=== PATIENT | female | born 1955 | race Caucasian/White ===

== ENCOUNTER 2024-11-08 13:58 | Outpatient (CLI) | payer MEDICARE, BC, SELFPAY ==
--- NOTE | 2024-11-08 14:30 | CRLHL7_ITS ---
For Patients: As a result of the Century Cures Act, medical imaging exams and procedure reports are released immediately into your electronic medical record. You may view this report before your referring provider. If you have questions, please contact your health care provider. Indication: Low back pain Technique: Multiplanar, multisequence, MRI of the lumbar spine, obtained without contrast. Comparison: Lumbar spine x-ray 10/31/2024 Findings: The lumbar lordosis is preserved. No significant spondylolisthesis. Vertebral body heights are grossly maintained. No evidence of acute fracture or focal compression deformity. Bone marrow signal appears within normal limits. The conus medullaris terminates at approximately L2. Incidental right renal cysts. No suspicious findings in the prevertebral and paraspinal soft tissues. Mild degenerative changes of the included SI joints. T12-L1: Mild disc bulge. No neural foraminal or spinal canal stenosis. L1-L2: No neural foraminal or spinal canal stenosis. L2-L3: Mild disc bulge, mild facet arthropathy. No neural foraminal or spinal canal stenosis. L3-L4: Diffuse disc bulge, mild facet arthropathy. Mild bilateral neural foraminal narrowing. Mild spinal canal narrowing. L4-L5: Diffuse disc bulge, facet arthropathy, ligamentum flavum laxity. Mild left, mild-moderate right neural foraminal narrowing. Mild-moderate spinal canal narrowing. L5-S1: Laterally eccentric disc-osteophyte complex, moderate facet arthropathy. No neural foraminal or spinal canal stenosis. Impression: 1. Lumbar spondylosis as detailed. 2. At L3-L4, mild bilateral neural foraminal narrowing, with mild spinal canal narrowing. 3. At L4-L5, mild-moderate right and mild left neural foraminal narrowing, with mild-moderate spinal canal narrowing. Dictated by Jessy Kelly MD @ 11/08/2024 3:21:50 PM (Electronically Signed)
== END 2024-11-08 13:59 | disposition home or self-care (01) ==
LOC: MRI 14:00
PROVIDERS: PCP Internal Medicine; Visit Provider Family Medicine
DX: M54.50 Low back pain, unspecified (principal); M47.896 Other spondylosis, lumbar region; M51.26 Other intervertebral disc displacement, lumbar region; M54.17 Radiculopathy, lumbosacral region
CPT/HCPCS: 72148

== ENCOUNTER 2024-11-26 13:02 | Outpatient (CLI) | payer MEDICARE, BC, SELFPAY | END 2024-11-26 13:03 | disposition home or self-care (01) | LOC: INJ CL 13:03 | PROVIDERS: PCP Internal Medicine; Visit Provider Family Medicine | DX: M54.16 Radiculopathy, lumbar region (principal); M51.26 Other intervertebral disc displacement, lumbar region | CPT/HCPCS: 64483; J1100; Q9966 ==

== ENCOUNTER 2025-03-04 07:07 | Day surgery (SDC) | payer MEDICARE, BC, SELFPAY ==
[2025-03-04] VITALS (22 sets, daily range): BP systolic 111–144; BP diastolic 61–89; PULSE 61–91; RESP 14–20; TEMP 35.9–37.1; O2SAT 92–100; BMI 29.2
[2025-03-04] MEDS: ACETAMINOPHEN 500 MG TABLET 1000 MG PO ×3 (08:00→20:04)
[2025-03-04] MEDS: CELECOXIB 200 MG CAPSULE PO ×2 (08:00→21:07)
[2025-03-04] MEDS: OXYCODONE (CR) 10 MG TAB.ER.12H PO (08:00)
[2025-03-04] MEDS: LACTATED RINGERS 1000 ML 1,000 ML 100 ML IV (08:06)
[2025-03-04] MEDS: SODIUM CHLORIDE 0.9 % (FLUSH) 10 ML SYRINGE IVF (08:06)
--- NOTE | 2025-03-04 08:23 | W.PM.NB ---
Nerve Block Nerve Block Time Seen by Provider: 08:10 Date Seen: 03/04/25 Type of block requested by surgeon for post-operative analgesia: adductor canal Side: right Time out performed: Yes Verification of patient name: Yes Verification of date of : Yes Site marking: site marked Name of person performing procedure: Tello Continuous monitoring Was continuous monitoring of O2 sat, B/P, school lunch monitor, recorded every 15 minutes?: Yes Procedure Checklist: sterile prep, needles and gloves Ultrasound guided. Images saved: Yes Medications given in 5ml increments after negative aspiration: Marcaine %: 0.25 mL: 15 Needle gauge: 20 Precedex (mcg): 25 Patient tolerated procedure well: Yes Block Charges Block Charge (with Pro Fee): Femoral Nerve Use of Ultrasound Machine for Block: Yes- US Guidance/pain block
--- NOTE | 2025-03-04 08:23 | W.PM.NB ---
Nerve Block Nerve Block Time Seen by Provider: 08:10 Date Seen: 03/04/25 Type of block requested by surgeon for post-operative analgesia: geniculars Side: right Time out performed: Yes Verification of patient name: Yes Verification of date of : Yes Site marking: site marked Name of person performing procedure: Tello Continuous monitoring Was continuous monitoring of O2 sat, B/P, cardiac catheterization technician, recorded every 15 minutes?: Yes Procedure Checklist: sterile prep, needles and gloves Ultrasound guided. Images saved: Yes Medications given in 5ml increments after negative aspiration: Marcaine %: 0.25 mL: 9 Needle gauge: 25 Patient tolerated procedure well: Yes Block Charges Block Charge (with Pro Fee): Genicular Nerve Block
--- NOTE | 2025-03-04 08:24 | P.ANES_ITS ---
Anesthesia Charges Start Date/Time Anesthesia Start Date: 03/04/25 Anesthesia Start Time: 08:27 Stop Date/Time Anesthesia Stop Date: 03/04/25 Anesthesia Stop Time: 10:51 Coding CPT Codes CPT Codes: ANESTH KNEE ARTHROPLASTY - 60584 ([id number]) P2 - PATIENT W/MILD SYST DISEASE, QK - SLOT HOST 2-4 CNCRNT ANES PROC, QX - HEAD FIELD HOCKEY COACH SVC W/ MD MED DIRECTION
--- NOTE | 2025-03-04 08:24 | W.ANESCHARGE ---
Anesthesia Charges Start Date/Time Anesthesia Start Date: 03/04/25 Anesthesia Start Time: 08:27 Stop Date/Time Anesthesia Stop Date: 03/04/25 Anesthesia Stop Time: 10:51 Coding CPT Codes CPT Codes: ANESTH KNEE ARTHROPLASTY - 96915 ([id number]) P2 - PATIENT W/MILD SYST DISEASE, QK - WHITESMITH 2-4 CNCRNT ANES PROC, QX - CINDER DUMP CRANE OPERATOR SVC W/ MD MED DIRECTION
[2025-03-04] MEDS: TRANEXAMIC ACID 100 MG/ML INJ 1000 MG IV (08:46)
[2025-03-04] MEDS: LACTATED RINGERS 1000 ML 1,000 ML 125 ML IV (09:00)
--- NOTE | 2025-03-04 10:24 | CRLHL7_ITS ---
For Patients: As a result of the Century Cures Act, medical imaging exams and procedure reports are released immediately into your electronic medical record. You may view this report before your referring provider. If you have questions, please contact your health care provider. Indication: POST OP TKA Technique: Two views right knee Findings/Impression: Hardware from a right total knee arthroplasty is in satisfactory position. Bone alignment is normal. No sign of acute fracture. Postop changes are within normal limits. Dictated by Daniel Stacy MD @ 03/04/2025 11:06:59 AM (Electronically Signed)
--- NOTE | 2025-03-04 10:29 | PM.ORPRC ---
Procedure Note Date of procedure: 03/04/25 Procedure: PREOPERATIVE DIAGNOSIS: Bilateral knee osteoarthritis POSTOPERATIVE DIAGNOSIS: Bilateral knee osteoarthritis NAME OF OPERATION: Right total knee arthroplasty, left knee steroid injection SURGEON: Zan Morel MD GROUP HOME SUPERVISOR: ORALIA Davila ANESTHESIA: Spinal ESTIMATED BLOOD LOSS: 25 mL COMPLICATIONS: None SPECIMENS: None DRAINS: None PREOPERATIVE ANTIBIOTICS: Ancef 2g IMPLANTS: 1. J&J Attune #6 posterior stabilized femur 2. # 7 fixed-bearing tibia 3. #6 posterior stabilized, 8 mm fixed-bearing polyethylene 4. 38 patella INDICATIONS: The patient is a 69-year-old with a longstanding history of severe, unrelenting right knee pain secondary to end-stage (grade IV) right knee osteoarthritis. Despite appropriate nonoperative management, including activity modification, anti-inflammatories, [id number] pain medication, bracing, physical therapy, and injections they continue to have pain and disability. Operative intervention was offered. The risks, benefits and expected outcomes were discussed in detail. These included but were not limited to: Infection, bleeding, injury to blood vessel or nerve, venous thromboembolism. All questions were answered to their satisfaction. Use of an assignment desk assistant was necessary throughout the case for patient positioning and safety, soft tissue retraction, and closure. PROCEDURE: Spinal anesthesia was administered. The patient was placed supine on the operating table. The assignment desk assistant made sure the patient was positioned appropriately. The lower extremity was prepped and draped in the usual sterile fashion. The limb was exsanguinated with the Miguel Ángel bandage. The pneumatic tourniquet was inflated to 225mmHg. A standard anterior incision was made with the knee in flexion. Subcutaneous dissection was sharply taken through fascial layer #1. Full-thickness medial and lateral flaps were elevated. The assignment desk assistant retracted the soft tissues and protected them throughout the case. A standard subvastus approach was made. The patella was subluxed. The infrapatellar fat pad was debrided. The menisci and cruciate ligaments were sharply d?brided. Marginal osteophytes were d?brided with the rongeur. The drill was used to penetrate the femoral canal. The intramedullary femoral guide was placed for a 5-degree valgus cut, removing 10 mm off the distal femur. The saw was used to make the cut. Whitesides line and the trans epicondylar axis were marked. The femoral sizing guide was pinned onto the distal femur. Three degrees of external rotation nicely parallels the transepicondylar axis. Pins were placed for posterior referencing. The four-in-one cutting guide was pinned onto the distal femur. The anterior, posterior, and chamfer cuts were made. The assignment desk assistant protected the collateral ligaments. The box cutting guide was pinned. The box cuts were made. The boxed trial was placed and was an excellent fit. Drill holes for the lugs were made. Attention was then turned to the proximal tibia. The extramedullary tibial guide was placed for a neutral varus/valgus cut with 5 degrees of posterior slope, removing 1 mm based off the medial tibial surface. The assignment desk assistant protected the collateral ligaments and the neurovascular bundle. The saw was used to make the cut. Trial components were placed. The knee was nicely balanced in both flexion and extension. The trial components were removed. The tray was placed in appropriate rotation, parallel to our tibial cutting pins. It was pinned by the assignment desk assistant and the drill and the punch were used. The tray was removed. The punch was used again. We placed a bone plug in the femoral canal. Attention was then turned to the patella. [place] patellar thickness was 22 mm. The lobster claw resection guide was used with the 9.5 mm hiwot. The saw was used to make the cut. Drill holes were made by the assignment desk assistant. The trial was placed and was an excellent fit. Cancellous surfaces were irrigated with pulse lavage and thoroughly dried by the assignment desk assistant. We cemented the tibial component, then the femoral component. We impacted the 8 mm polyethylene onto the tibial tray. The knee was brought into full extension. We then cemented the patellar component. Excessive cement was removed. The cement was allowed to harden. The knee was taken through a range of motion and was found to be nicely balanced in both flexion and extension. The patella tracks centrally. The assignment desk assistant did a three minute dilute Betadine solution soak. The assignment desk assistant irrigated the wound with 3 liters of normal saline via pulse lavage. The assignment desk assistant reapproximated the extensor mechanism with #1 Vicryl in an interrupted [id number] fashion. The assignment desk assistant then ran the extensor mechanism with a #1 PDO Stratafix. The assignment desk assistant closed the subcutaneous tissues with a 3-0 Stratafix and the skin with a running 3-0 Stratafix in a subcuticular fashion. The assignment desk assistant placed a dry dressing. The left knee was sterilely prepped and was injected with 4 mL 0.25% Marcaine without epinephrine, 40 mg Depo-Medrol. Sponge and needle counts were correct x2. The patient tolerated the procedure well. There were no apparent complications. They were carefully transferred to the hospital bed and taken to the postanesthesia care unit in satisfactory condition. PLAN: The patient will be mobilized with physical therapy. Aspirin will be used for DVT prophylaxis. They will be discharged to home once medically appropriate.
[2025-03-04] MEDS: BUPIVACAINE 0.25% 30 ML INJECTION (10:41)
[2025-03-04] MEDS: methylPREDNISolone acetate 80 MG/ML INJ 40 MG INTRA-ARTI (10:41)
--- NOTE | 2025-03-04 10:51 | P.ANES_ITS ---
Anesthesia Charges Start Date/Time Anesthesia Start Date: 03/04/25 Anesthesia Start Time: 08:27 Stop Date/Time Anesthesia Stop Date: 03/04/25 Anesthesia Stop Time: 10:51 Coding CPT Codes CPT Codes: ANESTH KNEE ARTHROPLASTY - 78660 ([id number]) P2 - PATIENT W/MILD SYST DISEASE, QK - TRADING ANALYST 2-4 CNCRNT ANES PROC
--- NOTE | 2025-03-04 10:51 | W.ANESCHARGE ---
Anesthesia Charges Start Date/Time Anesthesia Start Date: 03/04/25 Anesthesia Start Time: 08:27 Stop Date/Time Anesthesia Stop Date: 03/04/25 Anesthesia Stop Time: 10:51 Coding CPT Codes CPT Codes: ANESTH KNEE ARTHROPLASTY - 81405 ([id number]) P2 - PATIENT W/MILD SYST DISEASE, QK - APPRENTICE FUNERAL DIRECTOR 2-4 CNCRNT ANES PROC
[2025-03-04] MEDS: LACTATED RINGERS 1000 ML 1,000 ML 75 ML IV (12:23)
--- NOTE | 2025-03-04 14:04 | PM.IMCN1 ---
Date of Consult Patient: Other Consult date: 03/04/25 Primary Care Provider: Willis Joseph MD Consult Narrative Narrative: Nallely Parks is a 69 year old female admitted to the hospital for right total knee arthroplasty. Dr. Morel performed the procedure without complications. He has requested consultation for management of postoperative medical problems. Patient reports doing well postoperatively except for urinary incontinence. She reports that she has had a couple episodes of urinary incontinence postoperatively. She did not have a sensation to void and likely this was an affect from her spinal anesthesia. She has not previously had any problems with urinary incontinence or bowel or bladder problems. She is also having back pain which is a chronic problem for her. Postoperatively her back was bothering her more than her knee. She undergoes outpatient orthopedic care with Dr. Bolanos. She received a spinal injection on November 26 which she reported helped a lot for about 5 weeks. She has bilateral knee osteoarthritis. She had her right knee replaced today and left knee was injected today by Dr. Morel and she plans to have it replaced in the future. No recent illness or injury. She had a preop physical where there were no significant medical problems identified. She has had previous hysterectomy without problems with anesthesia bleeding or clotting. No family history of problems with bleeding or clotting or anesthesia. [facility] Medical History (Updated 03/04/25 @ 15:34 by Tyler Burciaga MD) Varicose veins of both lower extremities ?I83.93 - Asymptomatic varicose veins of bilateral lower extremities (ICD-10) Sinusitis ?J32.9 - Chronic sinusitis, unspecified (ICD-10) Leukocytosis ?D72.829 - Elevated white blood cell count, unspecified (ICD-10) Keratosis ?L57.0 - Actinic keratosis (ICD-10) Hyperlipidemia ?E78.5 - Hyperlipidemia, unspecified (ICD-10) GERD (gastroesophageal reflux disease) ?K21.9 - Gastro-esophageal reflux disease without esophagitis (ICD-10) Dry eye syndrome ?H04.129 - Dry eye syndrome of unspecified lacrimal gland (ICD-10) Asthma ?J45.909 - Unspecified asthma, uncomplicated (ICD-10) Surgical History (Updated 03/04/25 @ 15:31 by Tyler Burciaga MD) Status post knee replacement ?Z96.659 - Presence of unspecified artificial knee joint (ICD-10) History of right breast biopsy (2000) ?Z98.890 - Other specified postprocedural states (ICD-10) History of esophagogastroduodenoscopy (EGD) (02/27/19) ?Z98.890 - Other specified postprocedural states (ICD-10) History of eye surgery (03/17/10) ?Z98.890 - Other specified postprocedural states (ICD-10) History of total hysterectomy (1991) ?Z90.710 - Acquired absence of both cervix and uterus (ICD-10) Social History (Updated 03/04/25 @ 15:27 by Tyler Burciaga MD) Narrative: She lives with her in [place]. They have a couple steps into the house and she can live on 1 level. She does not smoke. She occasionally drinks alcohol What is your current living situation?: I presently have a place to live Smoking Status: Never smoker How often do you have a drink containing alcohol: monthly or less AUDIT-C Alcohol total score: 1 Non-prescribed substance use: denies use Caffeine: Yes Meds Home Medications and Allergies Home Medications ?Medication ?Instructions ?Recorded ?Confirmed ?Type clobetasol 0.05 % topical ointment topical 2XW 10/31/24 01/16/25 History fluticasone propionate 50 2 spray intranasal DAILY 10/31/24 03/04/25 History mcg/actuation nasal spray,suspension fluticasone 250 mcg-salmeterol 50 1 ea inhalation BID 11/27/24 03/04/25 History mcg/dose blistr powdr for inhalation (Wixela Inhub) acetaminophen 650 mg 1,300 mg PO Q8H PRN 02/25/25 03/04/25 History tablet,extended release (Pain Relief (acetaminophen)) losartan 25 mg tablet 25 mg PO QDAY 02/25/25 03/04/25 History rosuvastatin 5 mg tablet 5 mg PO QDAY 02/25/25 03/04/25 History aspirin 81 mg chewable tablet 81 mg PO BID for DVT prophylaxis 03/04/25 Rx (Aspirin Childrens) 30 days #60 tabs oxycodone 5 mg tablet 2.5 - 5 mg (0.5 - 1 x 5 mg) PO 03/04/25 Rx Q4-6H PRN Pain #42 tabs sennosides 8.6 mg tablet (Senna 17.2 mg (2 x 8.6 mg) PO BID PRN 03/04/25 Rx Lax) constipation #100 tabs Allergies Allergy/AdvReac Type Severity Reaction Status Date / Time Penicillins Allergy Unknown Rash Verified 03/04/25 07:35 Exam Narrative: Exam Narrative: She is alert and appears in no distress. Oropharynx normal. Respirations are clear to auscultation. Cardiovascular: S1, S2, regular rate and rhythm. Abdomen: Bowel sounds active. Abdomen is soft without tenderness or mass. Lower extremities examined. No edema she has intact sensation and pulses and motion in her feet and ankles. Const: Vital Signs, click to edit/add: Vital Signs - 24 hr 03/04/25 08:10 03/04/25 10:47 03/04/25 10:55 Temperature 98.1 F 97.2 F L Pulse Rate 67 73 67 Pulse Rate [Left P ulse Oximeter] Respiratory Rate 16 14 16 Blood Pressure 136/77 115/73 121/76 Blood Pressure [Ri ght Arm] Pulse Oximetry 100 97 97 Oxygen Delivery Me thod Nasal Cannula Room Air Room Air Oxygen Flow Rate 3 03/04/25 11:00 03/04/25 11:05 03/04/25 11:10 Temperature Pulse Rate 64 64 61 Pulse Rate [Left P ulse Oximeter] Respiratory Rate 16 14 16 Blood Pressure 122/81 123/80 124/71 Blood Pressure [Ri ght Arm] Pulse Oximetry 98 99 97 Oxygen Delivery Me thod Room Air Room Air Room Air Oxygen Flow Rate 03/04/25 11:15 03/04/25 11:20 03/04/25 11:41 Temperature 97.2 F L 96.6 F L Pulse Rate 64 62 Pulse Rate [Left P ulse Oximeter] 61 Respiratory Rate 16 16 14 Blood Pressure 137/81 131/75 Blood Pressure [Ri ght Arm] 132/75 Pulse Oximetry 98 98 95 Oxygen Delivery Me thod Room Air Room Air Room Air Oxygen Flow Rate 03/04/25 11:41 03/04/25 11:49 03/04/25 12:01 Temperature Pulse Rate Pulse Rate [Left P ulse Oximeter] 66 71 Respiratory Rate 16 18 16 Blood Pressure Blood Pressure [Ri ght Arm] 130/87 117/70 Pulse Oximetry 95 96 95 Oxygen Delivery Me thod Room Air Room Air Room Air Oxygen Flow Rate 3 03/04/25 12:15 03/04/25 12:45 03/04/25 13:00 Temperature Pulse Rate Pulse Rate [Left P ulse Oximeter] 76 Respiratory Rate 16 Blood Pressure Blood Pressure [Ri ght Arm] 144/80 H 116/61 127/67 Pulse Oximetry 95 Oxygen Delivery Me thod Room Air Oxygen Flow Rate 3 Documenting provider has reviewed patient's vital signs: yes Assessment and Plan Assessment and plan (1) Status post knee replacement: Problem comment: Right total knee arthroplasty 03/04/2025 Dr. Morel. no complications. Status: Acute (2) Urinary incontinence: Problem comment: Likely from spinal anesthesia. Likely to improve. Status: Acute (3) Osteoarthritis of left knee: Problem comment: Status post knee injection 03/04/2025 Status: Acute (4) Lumbar radiculopathy: Problem comment: Chronic, epidural steroid injection on 11/26/2024 Status: Acute Plan Admit for postoperative care, therapy, pain management, observation of side effects of spinal anesthesia. Total Time Spent Total Time Spent: Total time spent today is 40 minutes in coordination of care, reviewing outside records, discussion with patient and about recovery from surgery and monitoring for complications.
[2025-03-04] MEDS: CEFAZOLIN 2 GM in 0.9 % SODIUM CHLORIDE Mini-bag 100 ML IVPB ×2 (15:18→23:23)
--- NOTE | 2025-03-04 16:24 | PC.NURSE ---
Pt got back from pacu with pain 2-4 /10 she is getting food and po pain meds. she is alert x4. she is very pleasant, she was up with a assist walker and GB. she is a fall risk. and alarms are on. IV is patent. she is voiding. she is up to the chair and she has a sore back
[2025-03-04] MEDS: ROSUVASTATIN CALCIUM 10 MG TABLET 5 MG PO (17:41)
--- NOTE | 2025-03-04 19:35 | PC.NURSE ---
End of shift Note (262) Patient was very pleasant and cooperative throughout shift. VSS. Afebrile. Moves SBA. Saline locked. Reports pain is tolerable.
[2025-03-04] MEDS: ASPIRIN 81 MG TABLET EC PO (21:07)
[2025-03-04] MEDS: [UNRECOGNIZED DRUG - OTHER] IH (21:07)
[2025-03-04] MEDS: FLUTICASONE PROPION SALMETEROL IH (21:07)
[2025-03-04] MEDS: SENNOSIDES 1 TAB TABLET 2 TAB PO (21:08)
[2025-03-05] MEDS: ACETAMINOPHEN 500 MG TABLET 1000 MG PO ×2 (01:52→08:46)
[2025-03-05 03:00] VITALS: BP 129/76; PULSE 80; RESP 18; TEMP 36.4; O2SAT 95
--- NOTE | 2025-03-05 05:38 | PC.NURSE ---
End of shift report [id number]: VSS. Afebrile. Right knee dressing is C/D/I, CMS is intact. Pt denies nausea. Pt ambulated the [place] twice overnight with clinical writer. Pt ambulates SBA with walker and gait belt. Intermittent ice applied. Pt is up in the chair, call light within reach. ?
--- NOTE | 2025-03-05 08:05 | PM.IMPN1 ---
Assessment and Plan Assessment and plan (1) Status post knee replacement: Problem comment: Right total knee arthroplasty 03/04/2025 Dr. Morel. no complications. Doing well, discharge today Status: Acute (2) Urinary incontinence: Problem comment: Likely from spinal anesthesia. Resolved Status: Acute (3) Osteoarthritis of left knee: Problem comment: Status post knee injection 03/04/2025 Status: Acute (4) Lumbar radiculopathy: Problem comment: Chronic, epidural steroid injection on 11/26/2024 Status: Acute (5) Insomnia: Problem comment: Patient slept poorly in the hospital. She thinks she will sleep better at home but with her back pain and other chronic insomnia we discussed behavioral interventions and medications to address this issue. Particular focus on addressing back pain. I did prescribe hydroxyzine which can be used on an as needed basis. Status: Acute Plan Discharge to home today for outpatient therapy and outpatient follow-up of back pain and insomnia. Total Time Spent Total Time Spent: Total time spent today is 35 minutes in coordination of care and discussing management of chronic back pain, insomnia an postop rehab for knee surgery. Subjective Date Seen: 03/05/25 Interval history: 69-year-old female status post right knee arthroplasty day 1. The pain is manageable. Continues to have significant back pain and finding sleeping in the chair last night was uncomfortable but better than sleeping in the bed. She has regained bladder control. Exam Narrative: Exam Narrative: Right Knee has moderate bruising around it. She has intact motion and sensation distally. Const: Vital Signs, click to edit/add: Vital Signs - 24 hr 03/04/25 08:10 03/04/25 10:47 03/04/25 10:55 Temperature 98.1 F 97.2 F L Pulse Rate 67 73 67 Pulse Rate [Left P ulse Oximeter] Respiratory Rate 16 14 16 Blood Pressure 136/77 115/73 121/76 Blood Pressure [Le ft Arm] Blood Pressure [Ri ght Arm] Pulse Oximetry 100 97 97 Oxygen Delivery Me thod Nasal Cannula Room Air Room Air Oxygen Flow Rate 3 03/04/25 11:00 03/04/25 11:05 03/04/25 11:10 Temperature Pulse Rate 64 64 61 Pulse Rate [Left P ulse Oximeter] Respiratory Rate 16 14 16 Blood Pressure 122/81 123/80 124/71 Blood Pressure [Le ft Arm] Blood Pressure [Ri ght Arm] Pulse Oximetry 98 99 97 Oxygen Delivery Me thod Room Air Room Air Room Air Oxygen Flow Rate 03/04/25 11:15 03/04/25 11:20 03/04/25 11:41 Temperature 97.2 F L 96.6 F L Pulse Rate 64 62 Pulse Rate [Left P ulse Oximeter] 61 Respiratory Rate 16 16 14 Blood Pressure 137/81 131/75 Blood Pressure [Le ft Arm] Blood Pressure [Ri ght Arm] 132/75 Pulse Oximetry 98 98 95 Oxygen Delivery Me thod Room Air Room Air Room Air Oxygen Flow Rate 03/04/25 11:41 03/04/25 11:49 03/04/25 12:01 Temperature Pulse Rate Pulse Rate [Left P ulse Oximeter] 66 71 Respiratory Rate 16 18 16 Blood Pressure Blood Pressure [Le ft Arm] Blood Pressure [Ri ght Arm] 130/87 117/70 Pulse Oximetry 95 96 95 Oxygen Delivery Me thod Room Air Room Air Room Air Oxygen Flow Rate 3 03/04/25 12:15 03/04/25 12:45 03/04/25 13:00 Temperature Pulse Rate Pulse Rate [Left P ulse Oximeter] 76 Respiratory Rate 16 Blood Pressure Blood Pressure [Le ft Arm] Blood Pressure [Ri ght Arm] 144/80 H 116/61 127/67 Pulse Oximetry 95 Oxygen Delivery Me thod Room Air Oxygen Flow Rate 3 03/04/25 14:15 03/04/25 15:00 03/04/25 15:00 Temperature Pulse Rate Pulse Rate [Left P ulse Oximeter] 71 88 Respiratory Rate Blood Pressure Blood Pressure [Le ft Arm] Blood Pressure [Ri ght Arm] 119/72 Pulse Oximetry 97 Oxygen Delivery Me thod Room Air Oxygen Flow Rate 03/04/25 15:15 03/04/25 16:15 03/04/25 17:15 Temperature 98 F Pulse Rate Pulse Rate [Left P ulse Oximeter] 70 88 91 Respiratory Rate 20 Blood Pressure Blood Pressure [Le ft Arm] 114/64 Blood Pressure [Ri ght Arm] 111/89 125/74 Pulse Oximetry 97 97 Oxygen Delivery Me thod Room Air Room Air Oxygen Flow Rate 03/04/25 19:00 03/04/25 23:00 03/04/25 23:00 Temperature 98.7 F Pulse Rate Pulse Rate [Left P ulse Oximeter] 78 84 Respiratory Rate 18 16 16 Blood Pressure Blood Pressure [Le ft Arm] Blood Pressure [Ri ght Arm] 114/69 Pulse Oximetry 92 98 Oxygen Delivery Me thod Room Air Room Air Oxygen Flow Rate 03/04/25 23:30 03/05/25 03:00 Temperature 97.4 F L 97.5 F L Pulse Rate Pulse Rate [Left P ulse Oximeter] 84 80 Respiratory Rate 16 18 Blood Pressure Blood Pressure [Le ft Arm] 129/76 Blood Pressure [Ri ght Arm] 123/83 Pulse Oximetry 98 95 Oxygen Delivery Me thod Room Air Room Air Oxygen Flow Rate Documenting provider has reviewed patient's vital signs: yes
[2025-03-05 08:08] VITALS: BP 128/75; PULSE 73; RESP 18; TEMP 36.5; O2SAT 96
--- NOTE | 2025-03-05 08:09 | PM.ORPN ---
Subjective Subjective Time Seen by Provider: 07:40 Date Seen: 03/05/25 Principal diagnosis: Status post right knee replacement Interval history: Nallely states she did not get much sleep last night. She is comfortable. She has ambulated the hallways. This went well. She will discharge to home today. Ortho Exam Narrative Exam Narrative: Alert and oriented x3. Patient is in no acute distress. Converses without labored breathing. Hearing is grossly intact. Ambulates with a walker. Examination of the right knee shows ecchymosis present. Anterior hematoma. Calves are soft and nontender. CMS intact right lower extremity. Const Vital Signs, click to edit/add: Vital Signs - 24 hr 03/04/25 08:10 03/04/25 10:47 03/04/25 10:55 Temperature 98.1 F 97.2 F L Pulse Rate 67 73 67 Pulse Rate [Left Pulse Oximeter] Respiratory Rate 16 14 16 Blood Pressure 136/77 115/73 121/76 Blood Pressure [Left Arm] Blood Pressure [Right Arm] Pulse Oximetry 100 97 97 Oxygen Delivery Method Nasal Cannula Room Air Room Air Oxygen Flow Rate 3 03/04/25 11:00 03/04/25 11:05 03/04/25 11:10 Temperature Pulse Rate 64 64 61 Pulse Rate [Left Pulse Oximeter] Respiratory Rate 16 14 16 Blood Pressure 122/81 123/80 124/71 Blood Pressure [Left Arm] Blood Pressure [Right Arm] Pulse Oximetry 98 99 97 Oxygen Delivery Method Room Air Room Air Room Air Oxygen Flow Rate 03/04/25 11:15 03/04/25 11:20 03/04/25 11:41 Temperature 97.2 F L 96.6 F L Pulse Rate 64 62 Pulse Rate [Left Pulse Oximeter] 61 Respiratory Rate 16 16 14 Blood Pressure 137/81 131/75 Blood Pressure [Left Arm] Blood Pressure [Right Arm] 132/75 Pulse Oximetry 98 98 95 Oxygen Delivery Method Room Air Room Air Room Air Oxygen Flow Rate 03/04/25 11:41 03/04/25 11:49 03/04/25 12:01 Temperature Pulse Rate Pulse Rate [Left Pulse Oximeter] 66 71 Respiratory Rate 16 18 16 Blood Pressure Blood Pressure [Left Arm] Blood Pressure [Right Arm] 130/87 117/70 Pulse Oximetry 95 96 95 Oxygen Delivery Method Room Air Room Air Room Air Oxygen Flow Rate 3 03/04/25 12:15 03/04/25 12:45 03/04/25 13:00 Temperature Pulse Rate Pulse Rate [Left Pulse Oximeter] 76 Respiratory Rate 16 Blood Pressure Blood Pressure [Left Arm] Blood Pressure [Right Arm] 144/80 H 116/61 127/67 Pulse Oximetry 95 Oxygen Delivery Method Room Air Oxygen Flow Rate 3 03/04/25 14:15 03/04/25 15:00 03/04/25 15:00 Temperature Pulse Rate Pulse Rate [Left Pulse Oximeter] 71 88 Respiratory Rate Blood Pressure Blood Pressure [Left Arm] Blood Pressure [Right Arm] 119/72 Pulse Oximetry 97 Oxygen Delivery Method Room Air Oxygen Flow Rate 03/04/25 15:15 03/04/25 16:15 03/04/25 17:15 Temperature 98 F Pulse Rate Pulse Rate [Left Pulse Oximeter] 70 88 91 Respiratory Rate 20 Blood Pressure Blood Pressure [Left Arm] 114/64 Blood Pressure [Right Arm] 111/89 125/74 Pulse Oximetry 97 97 Oxygen Delivery Method Room Air Room Air Oxygen Flow Rate 03/04/25 19:00 03/04/25 23:00 03/04/25 23:00 Temperature 98.7 F Pulse Rate Pulse Rate [Left Pulse Oximeter] 78 84 Respiratory Rate 18 16 16 Blood Pressure Blood Pressure [Left Arm] Blood Pressure [Right Arm] 114/69 Pulse Oximetry 92 98 Oxygen Delivery Method Room Air Room Air Oxygen Flow Rate 03/04/25 23:30 03/05/25 03:00 Temperature 97.4 F L 97.5 F L Pulse Rate Pulse Rate [Left Pulse Oximeter] 84 80 Respiratory Rate 16 18 Blood Pressure Blood Pressure [Left Arm] 129/76 Blood Pressure [Right Arm] 123/83 Pulse Oximetry 98 95 Oxygen Delivery Method Room Air Room Air Oxygen Flow Rate Assessment and Plan Assessment and plan (1) Status post knee replacement: Problem details: Right total knee arthroplasty 03/04/2025 Dr. Morel. no complications. Doing well, discharge today Status: Acute Assessment and Plan: Plan for discharge is today to home if they meet discharge criteria. DVT prophylaxis includes aspirin 81 mg twice daily x1 month, Compression stockings as needed for swelling. Frequent ambulation, every hour throughout the day. Remove dressing in 1 week. Observe wound and phone Orthopedics with any questions or concerns Return to clinic in 1-2 weeks for a wound check as scheduled Return to clinic in 6 weeks with surgeon Minimize narcotic use. Wean off and discontinue soon as possible. Activities as tolerated. No strenuous activity. Outpatient physical therapy as scheduled. Ice and elevate the operative extremity. No restriction on ice.
[2025-03-05 08:25] VITALS: O2SAT 95
[2025-03-05] MEDS: CELECOXIB 200 MG CAPSULE PO (08:45)
[2025-03-05] MEDS: ASPIRIN 81 MG TABLET EC PO (08:45)
[2025-03-05] MEDS: LOSARTAN POTASSIUM 50 MG TABLET 25 MG PO (08:46)
[2025-03-05] MEDS: [UNRECOGNIZED DRUG - OTHER] IH (09:04)
[2025-03-05] MEDS: FLUTICASONE PROPION SALMETEROL IH (09:04)
--- NOTE | 2025-03-05 10:19 | SUR.PREOP ---
TIME?OUT:?0815 on 03/04/2025 PT/RN/MDA?VERIFICATION?OF?SURGICAL?SITE,?PROCEDURE,?AND?CONSENT OBTAINED?PRIOR?TO?INVASIVE?PROCEDURE.
--- NOTE | 2025-03-05 10:40 | PC.SOCIAL ---
Discharge planning: SW met with patient and patient's who state that they don't have any needs/support requests for home. Patient mentions that she has made meals ahead of time and has prepped as much as she can. SW to assist if needs arise.
--- NOTE | 2025-03-05 11:05 | PC.NURSE ---
Pt discharged home at 1045. pt is alert and oriented. VSS. Right knee dressing c/d/i. minimal swelling noted, bilateral pedal pulse normal . Pain well managed. Ice packs given. Discharge instructions given to the pt, no further questions asked. Pt escorted out in wheelchair with spouse.
== END 2025-03-05 10:45 | disposition home or self-care (01) ==
LOC: OR 07:11 → MEDSURG 07:12
PROVIDERS: PCP Family Medicine; Visit Provider Orthopaedic Surgery
PROC: (CPT 27447; principal; 2025-03-04 08:30)
PROC: (CPT 27447; 2025-03-04 08:30)
DX: M17.0 Bilateral primary osteoarthritis of knee (principal); G89.18 Other acute postprocedural pain; R32 Unspecified urinary incontinence; K21.9 Gastro-esophageal reflux disease without esophagitis; J45.909 Unspecified asthma, uncomplicated; Z79.82 Long term (current) use of aspirin; M54.16 Radiculopathy, lumbar region; F51.04 Psychophysiologic insomnia
CPT/HCPCS: 27447; 20610; 01402; 64447; 64454; 73560; 76942; 97110; 97116; 97161; 97165; 97530; 97535; A9270; C1776; J0665; J0690; J1010; J1100; J2405; J2704; J7120

== ENCOUNTER 2025-03-06 19:08 | Emergency (ER) | payer MEDICARE, BC, SELFPAY ==
--- OUTSIDE RECORDS SUMMARY | 2025-02-19 13:00 | XMS_ITS | Encounter Summary ---
Author Organization [facility] Address [address] [place] [address] Care Team Providers Care Fish Culturist Name Role Phone Willis Joseph M.D. [facility] Reason for Visit * Reason Comments Pre-op Exam Surgery 03/04/25 [place], right knee, Dr Morel Encounter Details Date Type Department Care Team (Late st Contact Info) Description 02/19/2025 1:00 PM CDT Office Visit Department of Family Medicine, [facility], in [place], [place] [address] [place] [address] Willis Joseph M.B.B.S., MEliza [address] [place] [address] Preoperative Exam (Primary Dx); History Of Falling; Anxiety Social History Tobacco Use Types Packs/Day Years Used Date Smoking Tobacco: Never Passive Smoke Exposure: Never Smokeless Tobacco: Never Alcohol Use Standard Drinks/Week Comments Yes 7 (1 standard drink = 0.6 oz pur e alcohol) [facility] Utilities Answer Date Recorded In the past 12 months has e electric, gas, oil, or water [employer] threatened to shut off services in your home? No 12/20/2024 Humiliation, Afraid, Rape, and Kick questionnair e Answer Date Recorded Within the last year, have y ou been afraid of your partner or ex-partner? No 07/08/2022 Within the last year, have y ou been humiliated or emotionally abused in other ways by your partner or ex-partner? No Within the last year, have y ou been kicked, hit, slapped, or otherwise physically hurt by your partner or ex-partner? No 07/08/2022 Within the last year, have y ou been raped or forced to have any kind of sexual activity by your partner or ex-partner? No 07/08/2022 Hunger Vital Sign Answer Date Recorded Within the past 12 months, y ou worried that your food would run out before you got the money to buy more. Never true 12/21/19 25 Within the past 12 months, t he food you bought just didn't last and you didn't have money to get more. Never true 12/20/2024 PRAPARE - Transportation Answer Date Re corded In the past 12 months, has l ack of transportation kept you from medical appointments or from getting medications? No 11/25 In the past 12 months, has l ack of transportation kept you from meetings, work, or from getting things needed for daily living? No 12/20/2024 Depression Answer Date Recor ded PHQ-9 Total Score (max 27) 0 07/07 Housing Stability Answer Date Recorded What is your living situation today? I have a [facility] place to live 12/20/2024 Education Answer Date Recorded What is the highest level of school you have completed or the highest degree you have received? 12th grade 01/31/2019 Comments No Sex and Gender Information Value Date Recorded Sex Assigned at Female 02/21/2019 9:59 PM CDT Legal Sex Female 6:42 AM TEA TASTER Gender Identity Female 02/21/2019 9:59 PM CDT Sexual Orientation Straight 02/21/2019 9: 59 PM CDT documented as of this encounter Last Filed Vital Signs Vital Sign Reading Time Taken Comments Blood Pressure 119/76 02/19/2025 1:04 PM CDT average Pulse 73 02/19/2025 1:04 PM CDT Temperature 35.8 C (96.4 F) 02/19/2025 1:04 PM CDT Respiratory Rate 16 02/19/2025 1:04 PM CDT Oxygen Saturation - - Inhaled Oxygen Concentration - - Weight 80.6 kg (177 lb 11.1 oz) 02/19/2025 1:04 PM CDT Height 166.4 cm (5' 5.51) 02/19/2025 1 :04 PM CDT with shoes on Body Mass Index 29.11 02/19/2025 1:04 PM CDT documented in this encounter Progress Notes * Willis Joseph M.B.B.S., M.D. - 02/19/2025 1:00 PM CDT DATE OF VISIT: 02/19/2025 SUBJECTIVE CHIEF COMPLAINT / REASON FOR VISIT Nallely Parks is a 69 y.o. female who presents for evaluation of Pre-op Exam (Surgery 03/04/25 [place], right knee, Dr Morel). The patient verbally consented to an audio recording of their visit to assist with the completion of documentation. History of Present Illness Mrs. Nallely Parks is a 69 year old female who presents for preoperative evaluation for a right total knee replacement. She is scheduled for a right total knee replacement at [facility] on March 04, to be performed by Dr. Zan Morel. She has been experiencing knee issues since a fall in September of the previous year, which she believes precipitated her current condition. During the fall, she tripped and hit her good knee on a curb, but landed on grass, avoiding major injury. She has been attending physical therapy at [facility] and finds it beneficial for her back and legs. She also participates in water aerobics twice a week, which she enjoys and finds less risky for falls. She has a history of back issues for which she received an injection on the third of the month, which helped significantly. She continues to work on her back through physical therapy. Her current medications include Atarax for anxiety, which she takes a couple of times a week at bedtime to aid with sleep. She also takes Crestor (rosuvastatin) at night, losartan, a generic Advair Discus, a nasal spray, Pataday eye drops, and occasionally uses Albuterol. She has been using magnesium citrate gummies for sleep aid as well. She has stopped taking omega-3 supplements and other vitamins in preparation for surgery. No recent falls, headaches, dizziness, chest pain, shortness of breath, or black stools. She notes her stools are sometimes dark, which she attributes to her diet, specifically Raisin Bran. OBJECTIVE VITAL SIGNS BP 119/76 (BP Location: Left arm, Patient Position: Sitting, Cuff Size: Regular) Comment: average Comment (Cuff Size): long Pulse 73 Temp (!) 35.8 ??C (Temporal) Resp 16 Ht 166.4 cm Comment: with shoes on Wt 80.6 kg BMI 29.11 kg/m?? Physical Exam Vitals reviewed. Constitutional General: She is not in acute distress. Appearance: Normal appearance. She is not ill-appearing. HENT Head: Normocephalic and atraumatic. Cardiovascular Rate and Rhythm: Normal rate and regular rhythm. Pulmonary Effort: Pulmonary effort is normal. No respiratory distress. Breath sounds: Normal breath sounds. Musculoskeletal Cervical back: Normal range of motion. No rigidity. Lymphadenopathy Cervical: No cervical adenopathy. Neurological General: No focal deficit present. Mental Status: She is alert and oriented to person, place, and time. Physical Exam ASSESSMENT/ PLAN Preoperative Exam Scheduled for right total knee replacement at [facility] on March 04, 2025, with Dr. Zan Morris. A fall a year ago may have precipitated knee issues. Currently undergoing physical therapy and water aerobics, which are beneficial. No recent falls. Previous hysterectomy at age 37 with no anesthesia issues, opted to stay overnight post-surgery. No history of blood transfusions. Medications include Atarax for anxiety, taken occasionally for sleep, and magnesium gummies. Advised to hold certain medications and supplements on the day of surgery. Discussed postoperative blood thinner use, expected to be aspirin, as classic blood thinners are not typically used for prevention in this context. - Hold losartan, magnesium, multivitamins, fish oil, and supplements on the morning of surgery. - Continue Advair and albuterol as needed. - Allow Tylenol 500 mg if in pain on the morning of surgery. - Hold Nexium on the morning of surgery. - Continue rosuvastatin the night before surgery. - Discuss with Dr. Morel regarding postoperative blood thinner use, expected to be aspirin. History Of Falling Attending physical therapy at [facility], beneficial for both back and legs. - Continue physical therapy at [facility]. Anxiety Experiences anxiety, particularly when family is around, and uses Atarax as needed, which helps hersleep. Not anxious about upcoming surgery and is looking forward to it. Also uses magnesium gummiesoccasionally for sleep. - Continue Atarax as needed for anxiety and sleep. General Health Maintenance Good kidney function and a healthy bone density scan from four years ago. Advised to maintain bone health through lifestyle measures. Vitamin D levels are adequate. Encouraged to obtain nutrients through diet rather than supplements. Discussed the importance of regular exercise, adequate calcium and vitamin D intake, and avoiding smoking and excessive alcohol consumption. - Encourage regular exercise, including water aerobics. - Advise on adequate calcium and vitamin D intake through diet. - Advise against smoking and excessive alcohol consumption. documented in this encounter Miscellaneous Notes * Assessment & Plan Note - Willis Joseph M.B.B.S., M.D. - 02/19/2025 1:00 PM CDTAssociated Problem(s): History Of Falling Attending physical therapy at [facility], beneficial for both back and legs. - Continue physical therapy at [facility]. * Assessment & Plan Note - Willis Joseph M.B.B.S., M.D. - 02/19/2025 1:00 PM CDTAssociated Problem(s): Anxiety Experiences anxiety, particularly when family is around, and uses Atarax as needed, which helps hersleep. Not anxious about upcoming surgery and is looking forward to it. Also uses magnesium gummiesoccasionally for sleep. - Continue Atarax as needed for anxiety and sleep. documented in this encounter Plan of Treatment Upcoming Encounters Date Type Department Care Team (Late st Contact Info) Description 12/22/2025 10:45 AM CDT Office Visit Department of Family Medicine, [facility], in [place], [place] [address] [facility] [place] [address] Willis Joseph M.B.B.S., M.D. [address] [place] [address] documented as of this encounter Visit Diagnoses Diagnosis Preoperative Exam- Primary History Of Falling Anxiety documented in this encounter Additional Health Concerns Assessment Noted Time PHQ-9 Depression Total Score: 0 07/07/19 24 11:28 AM TEA TASTER documented as of this encounter Care Teams Fish Culturist Relationship Specialty Start Date End Date Willis Joseph M.B.B.S., M.D. [address] [place] [address] PCP - General Family Medicine 01/06/25 documented as of this encounter
--- OUTSIDE RECORDS SUMMARY | 2025-03-06 19:10 | XMS_ITS | Encounter Summary ---
Author Organization [facility] Address [address] [place] [address] Care Team Providers Care Claim Processing Specialist Name Role Phone Willis Joseph M.D. Primary Care Lavelle mckinnon Encounter Details Date Type Department Care Team (Late st Contact Info) Description 12/20/2024 Results Follow-Up Department of Community Internal Medicine in [place], [place] [address] [place] [phone] Ayana Loaiza MPAS, P.A.-C. [address] [place] [phone] Lipid Panel Social History Tobacco Use Types Packs/Day Years Used Date Smoking Tobacco: Never Passive Smoke Exposure: Never Smokeless Tobacco: Never Alcohol Use Standard Drinks/Week Comments Yes 7 (1 standard drink = 0.6 oz pur e alcohol) [facility] Utilities Answer Date Recorded In the past 12 months has e electric, gas, oil, or water [employer] threatened to shut off services in your [...] your living situation today? I have a [facility] place to live 12/20/2024 Education Answer Date Recorded What is the highest level of school you have completed or the highest degree you have received? 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 [address] [place] [phone] PCP - General Family Medicine 01/06/25 documented as of this encounter
--- OUTSIDE RECORDS SUMMARY | 2025-03-06 19:10 | XMS_ITS | Encounter Summary ---
Author Organization [facility] Address [address] [place] [id number] Care Team Providers Care Occupational Therapy Program Director Name Role Phone Willis Joseph M.D. Primary Care ino Encounter Details Date Type Department Care Team (Late st Contact Info) Description 03/17/2010 Historical Ophthalmology [facility] Kailash Mabry M.D. [address] [place] [phone] Social History Tobacco Use Types Packs/Day Years Used Date Smoking Tobacco: Never Assessed Comments Unknown Sex and Gender Information Value Date Recorded Sex Assigned at Female 02/21/2019 9:59 PM CDT Legal Sex Female 6:42 AM [employer] WORK[employer] Gender Identity Female 02/21/2019 9:59 PM CDT Sexual Orientation Straight 02/21/2019 9: 59 PM CDT documented as of this encounter Progress Notes * Kailash Mabry M.D. - 03/17/2010 11:04 AM CDT Eye General CHIEF COMPLAINT dry eye right, left eye tearing HISTORY OF PRESENT ILLNESS See letter from Dr. Sykes dated 17 February 2010. Long history of dry eye symptoms for which punctalplugs had been placed bilaterally. Unfortunately, developed right superior canaliculitis. She notesthat she was much improved after stones were removed from the canaliculus. Dr. Sykes probed the lacrimal drainage system and found an obstruction at the junction of the right superior canaliculus and the lacrimal sac. Her secondary concern today is that the left eye tears since placement of the punctal plug. Denies nasal or sinus disease, trauma, or surgery. IMPRESSION / REPORT / PLAN Consult requested by: Brody Sykes M.D. [id number] #[address] Sykes's diagnosis is exactly correct. Discussed option of canaliculotomy and removal of canalicular stone, and then proceeding as indicated if there is a distal canalicular obstruction. Risks and expectations thoroughly discussed. The patient understands and wishes to proceed today in the [place] [id number] procedure room. 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 We can do so today. Letter to Dr. Sykes. 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 [address] [place] [phone] documented as of this encounter Visit Diagnoses Not on filedocumented in this encounter Additional Health Concerns Infection Onset Date Last Indicated Resolved Time COVID19 Pending 04/22/2021 04/22/2021 04/23/2021 1 :17 AM CDT COVID19 Pending 04/15/2022 04/15/2022 04/15/2022 8 :37 PM CDT documented as of this encounter Care Teams Occupational Therapy Program Director Relationship Specialty Start Date End Date Willis Joseph M.B.B.S., M.D. [address] [place], [place] [address]GEORGINA Riley [phone] PCP - General Family Medicine 01/06/25 documented as of this encounter
--- OUTSIDE RECORDS SUMMARY | 2025-03-06 19:10 | XMS_ITS | Encounter Summary ---
Author Organization [facility] Address [address] [place] [address] Care Team Providers Care Manifold Operator Name Role Phone Willis Joseph M.D. Primary Care Lavelle mckinnon Reason for Visit * Reason Onset Date Comments Med Question 12/20/2024 URGENT-hydroxyzi ne is needing a PA patient is hoping to have something else prescribed so she can start it today Encounter Details Date Type Department Care Team (Latest Contact Info) Description 12/20/2024 Clinical Communication Department of Community Internal Medicine in [place], [place] [address] [place] [address] Ayana Loaiza MPAS, P.A.-C. [address] [place] [phone] Med Question (URGENT-hydroxyzine is needing a PA patient is hoping to have something else prescribed so she can start it today) Social History Tobacco Use Types Packs/Day Years Used Date Smoking Tobacco: Never Passive Smoke Exposure: Never Smokeless Tobacco: Never Alcohol Use Standard Drinks/Week Comments Yes 7 (1 standard drink = 0.6 oz pur e alcohol) [facility] Utilities Answer Date Recorded In the past 12 months has e electric, gas, oil, or water company threatened to shut off services in your [...] your living situation today? I have a [facility] to live 12/20/2024 Education Answer Date Recorded What is the highest level of school you have completed or the highest degree you have received? 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, in [address] [phone] Willis Joseph M.B.B.S., M.D. [address] [facility] [place] [address] documented as of this encounter Visit Diagnoses Diagnosis Anxiety documented in this encounter Additional Health Concerns Assessment Noted Time PHQ-9 Depression Total Score: 0 07/07/19 24 11:28 AM EDUCATIONAL FUNDRAISING DIRECTOR documented as of this encounter Care Teams Manifold Operator Relationship Specialty Start Date End Date Willis Joseph M.B.B.S., M.D. [address] [facility] [place] [phone] PCP - General Family Medicine 01/06/25 documented as of this encounter
--- OUTSIDE RECORDS SUMMARY | 2025-03-06 19:10 | XMS_ITS | Clinical Summary ---
Author Organization [facility] Address [address] [place] [id number] Care Team Providers Care Convertible Top Installer Name Role Phone Ayana Loaiza PA-C Primary Care Provider [phone]- [phone] Allergies Active Allergy Reactions Criticality Noted Date Comments Penicillins *Unknown Low 03/25/2016 Medications LACTOBACILLUS ACIDOPHILUS (LACTOBACILL.ACI DOPHILUS, BULK, MISC) As directed 1 Tablet once daily. Active MULTIVITAMIN (MULTIPLE VITAMINS DAILY ORAL) Take 1 Tab by mouth once daily. Active albuterol HFA 90 mcg/actuation inhalerIndicatio ns:Cough Inhale 2 Puffs by mouth every 4 hours if needed. 1 Inhaler 9 Active clobetasol 0.05% (TEMOVATE 0.05% OINTMENT) 0.05 % ointment Apply topically to affected area(s). Active cyanocobalamin (VITAMIN B12) 1,000 mcg tablet Take 1,000 mcg by mouth once daily. 1 Active Ofkqr-9-HVG-EPA- Fish Oil 1,000 mg (120 mg-180 mg) cap Take 1 Capsule by mouth once daily. Active cholecalciferol (VITAMIN D3) 1,000 unit tablet Take 25 mcg by mouth. Active famotidine (PEPCID) 20 mg tablet Take 20 mg by mouth. Active fluticasone (50 mcg per actuation) nasal solution (FLONASE) Inhale 2 Sprays into affected nostril(s) once daily in the morning. 3 Active cetirizine (ZYRTEC) 10 mg tablet Take 10 mg by mouth once daily if needed. 3 Active olopatadine HCl (PATADAY ONCE DAILY RELIEF OPHT) EXTRA STRENGTH 1 TAB A DAY 3 Active Active Problems No known active problems Encounters Date Type Department Care Team Description 02/27/2025 1:10 PM CDT - 02/27/2025 11:59 PM CDT Hospital Encounter [address] [address] Kory Salazar MD Becken, Amy, PT 02/27/2025 Travel 02/20/2025 1:13 PM CDT - 02/20/2025 11:59 PM CDT Hospital Encounter [address] [address] Kory Salazar MD Vinar, Kaylin J, LINE DECORATOR 02/20/2025 Travel 02/13/2025 1:12 PM CDT - 02/13/2025 11:59 PM CDT Hospital Encounter [address] [address] Kory Salazar MD Becken, Amy, PT 02/13/2025 Travel 02/06/2025 1:14 PM CDT - 02/06/2025 11:59 PM CDT Hospital Encounter [address] [address] Kory Salazar MD Vinar, Kaylin J, LINE DECORATOR 02/06/2025 Travel 02/03/2025 Transcribe Orders [facility] - [address] [address] Zan Morel MD 01/30/2025 12:58 PM CDT - 01/30/2025 11:59 PM CDT Hospital Encounter [address] [place] [address] Kory Salazar MD Becken, Amy, PT 01/30/2025 Travel 01/23/2025 1:50 PM CDT - 01/23/2025 11:59 PM CDT Hospital Encounter [address] [address] Kory Salazar MD Vinar, Kaylin J, LINE DECORATOR 01/23/2025 Travel 01/13/2025 11:41 AM CDT - 01/13/2025 11:59 PM CDT Hospital Encounter [address] [address] Kory Salazar MD Becken, Amy, PT 01/13/2025 Travel 01/06/2025 2:00 PM CDT - 01/06/2025 11:59 PM CDT Hospital Encounter [address] [address] Kory Salazar MD Becken, Amy, PT Encounter for person encountering health services 01/06/2025 Travel from Last 3 Months Social History Tobacco Use Types Packs/Day Years Used Date Smoking Tobacco: Never Smokeless Tobacco: Never Tobacco Cessation:Counseling Given: No Alcohol Use Standard Drinks/Week Comments Yes 0 (1 standard drink = 0.6 oz pur e alcohol) glass wine per day Comments No Sex and Gender Information Value Date Recorded Sex Assigned at Not on file Legal Sex Female 2:41 PM TARIFF INSPECTOR Gender Identity Not on file Sexual Orientation Not on file Obstetrics History Last Filed Vital Signs Vital Sign Reading Time Taken Comments Blood Pressure 132/70 04/17/2024 9:34 AM CDT Pulse 81 04/17/2024 9:34 AM CDT Temperature 36.7 C (98 F) 08/05/2022 12:00 PM TARIFF INSPECTOR Respiratory Rate 20 08/05/2022 12:0 0 PM TARIFF INSPECTOR Oxygen Saturation 98% 04/17/2024 9:34 AM CDT Inhaled Oxygen Concentration - - Weight 81.1 kg (178 lb 11.2 oz) 04/17/2024 9:34 AM CDT Height 165.1 cm (5' 5) 01/16/2024 10:4 9 AM CDT Body Mass Index 29.74 01/16/2024 10:49 AM CDT Plan of Treatment Upcoming Encounters Date Type Department Care Team (Late st Contact Info) Description 03/07/2025 1:15 PM CDT Appointment [address] [address] Mariana Capone, PT [address] [place] [address] 03/10/2025 1:15 PM CDT Appointment [address] [address] Mariana Capone, PT [address] [place] [address] 03/13/2025 1:15 PM CDT Appointment [address] [address] Kera Casetllanos, LINE DECORATOR [address] [place] [address] 03/17/2025 1:15 PM CDT Appointment [address] [address] Mariana Capone, PT [address] [place] [address] 03/20/2025 1:15 PM CDT Appointment [address] [address] Kera Castellanos, LINE DECORATOR [address] [place] [address] 03/24/2025 1:15 PM CDT Appointment [address] [address] Mariana Capone, PT [address] [place] [address] 03/27/2025 1:15 PM CDT Appointment [address] [address] Kera Castellanos, LINE DECORATOR [address] [place] [address] 03/31/2025 1:15 PM CDT Appointment [address] [address] Mariana Capone, PT [address] [place] [address] 04/03/2025 1:15 PM CDT Appointment [address] [address] Kera Castellanos, LINE DECORATOR [address] [place] [address] 04/07/2025 1:00 PM CDT Appointment [address] [address] Mariana Capone, PT [address] [place] [address] 04/10/2025 1:00 PM CDT Appointment [address] [address] Mariana Capone, PT [address] [place] [address] Health Maintenance Due Date Last Done Comments Tetanus booster 1966 Depression screening for age 12+ 1967 Hepatitis C screening for age 18-79 1973 Lipids for age 45-75 2000 Mammogram for age 45-75 2000 Pneumococcal series for age 50+ (1 of 1 - PCV) 2005 Zoster (shingles) series for age 50+ (1 of 2) 2005 DEXA/DXA scan for age 65+ 2020 Medicare Wellness for age 65+ 2020 BMI (ht and wt on same day) for age 18+ 01/15/2025 01/16/2024, 10/03/2018, 09/21/2018 Influenza Vaccine (#1) 2025 RSV vaccine for adults or (1 - 1-dose 75+ series) 2030 Colonoscopy through age 75 04/19/203204/19, 02/27/2019, 03/25/2016 COVID-19 vaccine series Completed 01/14/20, 04/19/2024, 04/05/2023, Additional history exists Hepatitis B series for 19+ Aged Out N o longer eligible based on patient's age to complete this topic Procedures Procedure Name Priority Date/Time Associated Diagnosis Comments COLONOSCOPY 04/19/2022 9:46 AM CDT from Last 3 Months or Most Recently Relevant to Health Maintenance Results * COLONOSCOPY (04/19/2022 9:46 AM CDT) 04/19/2022 9:46 AM CDT Narrative Transcriptions FromFrancis smith MD - 04/19/2022 10:33 AM CDT Patient Name: Nallely Parks Procedure Date: 04/19/2022 Gender: Female Date of : 1955 Admit Type: Ambulatory Procedure: Colonoscopy Proceduralist: Daniel Russell MD [facility], Monty Lewis MD (Paleontological Helper) Referring MD: Daniel Russell MD Indications/Pre-Op Diagnosis: Surveillance: Personal history ofadenomatous polyps on last colonoscopy 3 years ago Medications: Monitored Anesthesia Care Procedure Description: The procedure, indications, potential complications, (bleeding, perforation, infection, adverse medication reaction, missed lesionsor polyps) and alternatives available were explained to the patient, who appeared to understand and indicated this. Opportunity for questionswas provided and informed consent obtained. The endoscope [id number] was passed through the anus andadvanced to the cecum, identified by appendiceal orifice and ileocecal valve.The colonoscopy was somewhat difficult due to a tortuous colon.Successful completion of the procedure was aided by applying abdominal pressure. The patient tolerated the procedure well. The quality of the bowel preparation was evaluated using the BBPS (Wittenberg Bowel Preparation Scale) with scores of: Right Colon = 3, Transverse Colon = 3 and Left Colon = 3 (entire mucosa seen well with no residual staining, small fragments of stool or opaque liquid). The total BBPS score equals9. Complications: No immediate complications. Estimated Blood Loss & Specimen: Estimated blood loss was minimal. Specimen collected: Yes and sent to Laboratory Findings: The perianal and digital rectal examinations were normal. Pertinent negatives include normal sphincter tone. Normal appearing ileocecal valve A 6 mm polyp was found in the transverse colon. The polyp wassessile. The polyp was removed with a cold snare. Resection and retrieval were complete. The exam was otherwise without abnormality on direct and retroflexion views. Impressions/Post-Op Diagnosis: - One 6 mm polyp in the transverse colon, removed with a cold snare. Resected and retrieved. - The examination was otherwise normal on direct and retroflexionviews. Recommendation: - Await pathology results. - Dr. Russell's office will contact you with biopsy/pathology results when available. Moderate Sedation: Deep sedation per anesthesia. Daniel Russell MD 04/19/2022 10:33:05 AM This report has been signed electronically. Note Initiated On: 04/19/2022 9:46 AM us Francis Russell MD PROCEDURE ORD Final Resu lt from Last 3 Months or Most Recently Relevant to Health Maintenance [place] [address] MEDICARE PART A HB ONLY MEDICARE PART B HB ONLY [employer] BL[employer] MR PB ONLY [employer] BL[employer] HB ONLY Advance Directives * Full Code (Latest Code Status on File) Date Activated Date Inactivated Comments 04/19/2022 8:30 AM 04/19/2022 1:32 PM Question Answer Comments Code Status Discussion: Reviewed Preferences * Full Code Date Activated Date Inactivated Comments 02/27/2019 8:15 AM 02/27/2019 1:27 PM * Full Code Date Activated Date Inactivated Comments 03/25/2016 7:46 AM 03/25/2016 12:39 PM Care Teams Convertible Top Installer Relationship Specialty Start Date End Date Ayana Loaiza PA-C [address] [facility] [place] [phone] PCP - General Physician Market Research Consultant 03/30/22
--- OUTSIDE RECORDS SUMMARY | 2025-03-06 19:10 | XMS_ITS | Encounter Summary ---
Author Organization [facility] Address [address] [place] [address] Care Team Providers Care Indigo Vat Tender Cloth Name Role Phone Willis Joseph M.D. Primary Care Lavelle mckinnon Encounter Details Date Type Department Care Team (Late st Contact Info) Description 01/03/2025 Clinical Communication Department of Community Internal Medicine in [place], [place] [address] [place] [phone] Ayana Loaiza MPAS, P.A.-C. [address] [place] [phone] Social History Tobacco Use Types Packs/Day Years Used Date Smoking Tobacco: Never Passive Smoke Exposure: Never Smokeless Tobacco: Never Alcohol Use Standard Drinks/Week Comments Yes 7 (1 standard drink = 0.6 oz pur e alcohol) [facility] Utilities Answer Date Recorded In the past 12 months has [facility] [employer], gas, oil, or water [employer] threatened to shut off services in your [...] your living situation today? I have a [facility] place to live 12/20/2024 Education Answer Date Recorded What is the highest level of school you have completed or the highest degree you have received? 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 [address] [place] [address] documented as of this encounter Visit Diagnoses Not on filedocumented in this encounter Additional Health Concerns Assessment Noted Time PHQ-9 Depression Total Score: 0 07/07/19 24 11:28 AM INDUSTRIAL ENGINEERING DIRECTOR documented as of this encounter Care Teams Indigo Vat Tender Cloth Relationship Specialty Start Date End Date Willis Joseph M.B.B.S., M.D. [address] [place] [phone] PCP - General Family Medicine 01/06/25 documented as of this encounter
--- OUTSIDE RECORDS SUMMARY | 2025-03-06 19:10 | XMS_ITS | Clinical Summary ---
Author Organization [facility] Address [address] [place] [address] Care Team Providers Care Software Architect Name Role Phone Willis Joseph M.D. Primary Care P ino Source Comments Patient records contain information from all sites at [facility]. For routine questions regarding patient records, call [phone] during business hours, M-F 8:00 AM - 5:00 PM Central Time. Record requests for emergency care only can be directed to [phone] at any time.[facility] Allergies Active Allergy Reactions Criticality Noted Date Comments Penicillins Other (see comments),Rash Low 8 Medications * This document contains information received from the source organization and may not represent a complete record from that organization. LACTOBACILLUS ACIDOPHILUS ORAL Take 1 capsule by mouth daily. 3 Active multivitamin chewable tablet Chew 1 tablet daily. Active omega 3-cqh-uzb-fish oil 1,000 mg (120 mg-180 mg) capsule Take by mouth. Activ e cyanocobalamin (VITAMIN B12) 1,000 mcg tabletIndication s:Gastroesophage al Reflux Disease Take 1 tablet (1,000 mcg total) by mouth daily. Dosage unknown 90 tablet 3 1 Active Additional Information Patient not taking.Reported on 02/19/2025 cholecalciferol, vitamin D3, 25 mcg (1,000 Unit) tablet Take 25 mcg by mouth daily. Active cetirizine (ZyrTEC) 10 mg tablet Take 1 tablet (10 mg total) by mouth daily as needed for allergies. 90 tablet 3 3 Active UNABLE TO FIND Med Name: Shelbiemereduardo Active albuterol (Proventil HFA) 90 mcg/actuation inhalerIndicatio ns:Asthma Moderate Persistent (HCC) Inhale 2 puffs every 4 (four) hours as needed for wheezing. 18 g 3 4 Active olopatadine (Pataday) 0.2 % ophthalmic solution Administer 1 drop into both eyes daily. Active fluticasone propion-salmeter oL 250-50 mcg/dose diskus inhaler Inhale 1 puff 2 (two) times a day. Rinse mouth with water after use to reduce aftertaste and incidence of candidiasis. Do not swallow. 60 each 11 4 Active cyclobenzaprine (FlexeriL) 10 mg tablet Take 1 tablet (10 mg total) by mouth 3 (three) times a day as needed for muscle spasms. 30 tablet 4 Active fluticasone propionate (Flonase) 50 mcg/actuation nasal spray SHAKE LIQUID AND USE 2 SPRAYS IN EACH NOSTRIL DAILY 48 g 3 4 Active esomeprazole (NexIUM) [address] capsule Take 20 mg by mouth daily before morning meal. Taking once daily Active rosuvastatin (Crestor) 5 mg tablet Take 1 tablet (5 mg total) by mouth daily. 90 tablet 3 5 Active clobetasoL (Temovate) 0.05 % ointmentIndicati ons:Lichen Sclerosus Apply small amount Topical to vulva twice a week at bedtime 60 g 1 5 Active sennosides-docus ate sodium (Senokot-S) 8.6-50 mg per tablet Take 1 tablet by mouth as needed for constipation. Active halobetasol (Ultravate) 0.05 % ointmentIndicati ons:Lichen Sclerosus Apply 1 Application topically 2 (two) times a week. Apply to vulva. Apply at bedtime 50 g 1 5 Active Additional Information Patient not taking.Reported on 02/19/2025 magnesium gluconate (Magonate) 27.5 mg of magnesium (500 mg) tablet Take 27.5 mg of magnesium by mouth daily. Active hydrOXYzine (Atarax) 10 mg tabletIndication s:Anxiety Take 1 tablet (10 mg total) by mouth 4 (four) times a day as needed for anxiety. 30 tablet 5 Active losartan (Cozaar) 25 mg tabletIndication s:Hypertension Essential Primary Take 1 tablet (25 mg total) by mouth daily. 90 tablet 5 Active magnesium citrate solution Take 330 mL by mouth at bedtime as needed (gummies). Active acetaminophen (TylenoL) 325 mg tablet Take 325 mg by mouth as needed for pain. Active clobetasol-hydro colloid dress 0.05 %- 4 X 4 kit 2 (two) times a week. Active acetaminophen (TylenoL) 500 mg capsule Take 1,000 mg by mouth. Active peg 400-propylene glycol (Systane) 0.4-0.3 % ophthalmic solution 1 drop as needed for dry eyes. Active Active Problems Problem Noted Date Diagnosed Date History Of Falling 02/19/2025 Assessment & Plan (02/19/2025 2:01 PM CDT): Attending physical therapy at [facility], beneficial for both back and legs. - Continue physical therapy at [facility]. Pain Chest Wall 12/03/2024 Overview (12/03/2024): Right-sided and most noticeable at the end of the day. Exam was unable to reproduce the pain. No abnormalities were noted in the area. If this persists, I would recommend physical therapy for this. Cyst Inclusion 10/14/2024 Overview (12/03/2024): Multiple lesions consistent with epidermal inclusion cysts. The largest 1 in the posterior right labia majus has increased in size. Excision was performed at the time of the last visit and returned showing a benign inclusion cyst. Bloating Abdominal 10/14/2024 Overview (12/03/2024): She has gained weight over the last several years, particularly in the last 6-7 months. Her right knee pain is inhibiting her ability to exercise. She just received a cortisone injection, and that has helped. She does describe increased gas and bloating. Pelvic ultrasound was ordered to further evaluate this and returned completely normal. The most likely etiology is just central weight gain. We discussed diet and discuss the option of nutrition consult as well as utilization of an valentino to log energy expenditure and calorie. Family History Heart Disease 09/17/2024 Edema 03/19/2024 Overview (03/19/2024): Varicosities She is adopted. 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 She was told she needed to repeat it due to the tech not having her stand. Assessment & Plan (03/19/2024 3:53 PM CDT): She will be measured for compression stockings today. Venous Insufficiency Chronic Peripheral 12/19/19 Overview (12/19/2023): Bilateral varicose veins, painful with edema. She has both spider and large bulging tortuous veins. She has had varicose veins since she has been 15. Her mother and grandmother had varicosities. Negative Suman's sign. No erythema. Bilateral edema. Assessment & Plan (12/19/2023 5:06 PM CDT): Consult to vascular and venous competency testing.She prefers to go to [facility]. Referral was sent. Tubigrips applied. On AM off PM Gabapentin for neuropathic pain of burning. Neuropathy Peripheral Vasculitic 12/19/2023 Overview (12/19/2023): Painful burning veins Assessment & Plan (12/19/2023 3:58 PM CDT): Compression on AM off PM. Gabapentin 100 mg at bedtime Anxiety 06/23/2022 Assessment & Plan (02/19/2025 2:01 PM CDT): Experiences anxiety, particularly when family is around, and uses Atarax as needed, which helps her sleep. Not anxious about upcoming surgery and is looking forward to it. Also uses magnesium gummies occasionally for sleep. - Continue Atarax as needed for anxiety and sleep. Assessment & Plan (12/20/2024 12:54 PM CDT): Symptoms such as feeling on edge, eyes feeling like they are popping out, and heaviness in the head suggest anxiety. Stress related to family gatherings and her role as a host may contribute to anxiety. Hydroxyzine is chosen for its dual role as an antihistamine and anxiolytic, which also aids in sleep. - Prescribe Atarax (hydroxyzine) to help with anxiety and sleep. - Arrange for a follow-up call next week to assess anxiety management. Orders: hydrOXYzine (Atarax) 10 mg tablet; Take 1 tablet (10 mg total) by mouth 4 (four) times a day as needed for anxiety. Deficiency Vitamin B12 11/03/2020 Overview (11/03/2020): S/p parenteral replacement, and she is now on oral replacement. Symptoms are improving. We will recheck vitamin B12 today. Frequency Urinary 11/03/2020 Overview (12/03/2024): Discussed detrusor instability in the past. Discussed lifestyle modifications to help with this including avoiding triggers and bladder training exercises. She is occasionally having leakage but not frequently. She reports that she voids normal amounts when she does void. We discussed today that voiding diary shows that she drinks a lot of fluids. We discussed that what goes in must come out. For the most part, she is voiding normal amounts and has urgency symptoms after drinking coffee which is a bladder irritant and a diuretic. We discussed that avoiding this will likely help with her symptoms and drinking less liquids we will likely decrease the frequency of voids. She frequently wakes up at night due to back pain and then voids less she is awake. We discussed that this should improve with management of her pain and also that she should avoid drinking large amounts of liquids after 5:00 p.m. Screening Osteoporosis 11/03/2020 Overview (06/23/2022): DEXA scan completed in 2020. Normal bone density. Pain Right Upper Quadrant 11/03/2020 Overview (11/03/2020): This may be related to eating fatty meals. Liver panel and right upper quadrant ultrasound to assess the gallbladder ordered to further evaluate. Overweight Body Mass Index 25-29.9 Adult 021 Lichen Sclerosus 02/01/2019 Overview (11/03/2020): Vulva is healthy on exam. She will continue clobetasol ointment 1-2 times weekly as needed. Dry Eye Syndrome Bilateral 02/01/2019 Polyp Colon Personal History, Unspecified Type 0 02/01/2019 Overview (11/03/2020): Last colonoscopy was 2018, polyps noted. Repeat in 2023. Leukocytosis 02/01/2019 Asthma Mild Intermittent Wit h Environmental Exposure To Tobacco Smoke 04/11/2017 Overview (04/12/2023): Grandfather and Uncle were heavy smokers. Hyperlipidemia 03/01/2016 Overview (09/19/2024): Rosuvastatin started 09/19/2024. Repeat lipid panel ordered in 3 months. Assessment & Plan (12/20/2024 12:54 PM CDT): On statin therapy for hyperlipidemia. Statins are important in preventing cardiovascular events, especially given her elevated ASCVD 10-year risk score of nearly 19%. Statins are used not only to lower cholesterol but also to prevent plaque rupture, which can lead to strokes. - Continue current statin therapy. 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 She has BM daily each morning. Gastroesophageal Reflux Disease 08/30/2007 Overview (06/27/2022): Currently taking Pepcid 20 mg daily. Endoscopy completed March 2022 showing intestinal metaplasia. No dysplasia. Plan to repeat EGD in 3 years for surveillance. Resolved Problems Problem Noted Date Diagnosed Date Resolved Date History Of Falling 12/20/2024 5 Pain Knee Left 03/19/2024 09/17/2024 Overview (03/19/2024): Bilateral knee pain. Assessment & Plan (03/19/2024 3:52 PM CDT): Osteoarthritis. She had bilateral knee injections with ortho. She is better. PT needed for quad strengthening and gait. 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 Recommend repeat EGD in 5 years. Well Adult Examination Normal 11/03/2020 04/06/2022 Overview (11/03/2020): Preventative services: Pap smear not needed due to history of hysterectomy. Mammogram is up to date. Tdap administered today. Other preventative services managed by her PCP Dr. Joseph. Most of her chronic medical issues are managed by Dr. Joseph. Pain Neck 02/01/2019 09/17/2024 Pain Shoulder Right 02/01/2019 09/18/19 25 Weakness Arm Right 02/01/2019 3 Reflux Esophageal 08/30/2007 09/17/2024 Encounters Date Type Department Care Team Description 02/19/2025 1:00 PM CDT Office Visit Department of Family Medicine, [facility], in [address] [phone] Willis Joseph M.B.B.S., MLeon. Preoperative Exam (Primary Dx); History Of Falling; Anxiety 01/03/2025 10:15 AM CDT Nurse Only Department of Family Medicine, [facility], in [place] [place] [address] Willis Joseph M.B.B.S., M.D. Ayuob, Mysoon M, M.D. Blood Pressure Check 01/03/2025 Clinical Communication [facility] in [address] [place] [address] Willis Joseph M.B.B.S., M.D. 01/03/2025 Clinical Communication [facility] in [address] [place] [address] Ayana Loaiza MPAS, P.A.-CBon 12/23/2024 Clinical Communication Department of [facility] in [address] [place] [address] Ayana Loaiza MPAS, P.A.-CBon Follow-up 12/20/2024 2:40 PM CDT Office Visit Department of Family Medicine, [facility], in [address] [place] [address] Willis Joseph M.B.B.S., M.D. Hypertension Essential Primary (Primary Dx); Anxiety; Hyperlipidemia 12/20/2024 11:00 AM CDT Office Visit Department of Family Medicine, [facility], in [address] [place] [address] Ayana Loaiza MPAS, P.A.-C. Minerva Amaral R.N. Annual Medicare Examination Return (Primary Dx) 12/20/2024 10:56 AM CDT - 12/20/2024 11:59 PM CDT Hospital Encounter Department of Laboratory Medicine in [address] [place] [address] Willis Joseph M.B.BAryan Alex Hypertension Essential Primary Discharge Disposition: Home or Self Care 12/20/2024 9:02 AM CDT - 12/20/2024 10:55 AM CDT Hospital Encounter Department of Laboratory Medicine in [address] [phone] Ayana Loaiza MPAS, P.A.-C. Hyperlipidemia Discharge Disposition: Home or Self Care 12/20/2024 Results Follow-Up [facility] in [address] [phone] Ayana Loaiza MPAS, P.A.-C. Lipid Panel 12/20/2024 Clinical Communication [facility] in [address] [phone] Ayana Loaiza MPAS P.A.-C. Med Question (URGENT-hydroxyzine is needing a PA patient is hoping to have something else prescribed so she can start it today) 12/20/2024 Results Follow-Up Department of Family Medicine, [facility], in [address] [address] Willis Joseph M.B.B.S., MLeon. ECG 12 Lead 12/20/2024 Refill Department of Family Medicine, [facility], in [address] [address] Willis Joseph M.B.B.S., MLeon. Med Refill 12/10/2024 10:51 AM CDT - 12/10/2024 11:59 PM CDT Hospital Encounter Department of Radiology in [place], [place] [address] [place] [address] Ayana Loaiza MPAS, P.A.-C. Routine Screening Breast Exam Discharge Disposition: Home or Self Care from Last 3 Months Immunizations Immunization Administration Dates Next Due DT, Pediatric 09/12/2000 H1N1 All Forms 07/14/2009 HZV (ZOSTAVAX) 02/25/2016 Influenza Split 03/26/2007 Influenza high dose QV(65 ye ars or older) (PF) 04/15/2023,05/14/2022,05/02/2021 Influenza, Injectable, Mdck, Preservative Free, Quadrivalent 07/02/2017 Influenza, Seasonal, Injectable 04/24/20 14,03/26/2012,04/05/2011,2009,04/16/2008,04/23/2007,04/25/2006 Influenza, Unspecified 04/12/2023(Deferr ed: Patient decision),03/28/2020,07/02/2017, 017,04/25/2014,03/21/2013,03/26/2012,,04/19/2010,03/26/2007 PCV20 06/06/2022 PPSV23 02/25/2016 RSV: respiratory syncytial v irus (AREXVY) recombinant vaccine 05/16/2023 RZV (SHINGRIX) 08/17/2023, 3,04/12/2023(Deferr ed: Parental decision) SARS-COV-2 (COVID-19) - MODE RNA BIVALENT(Discontinued) 05/02/2022 SARS-COV-2 (COVID-19) - MODERNA(Discontinued) 11/16/2021,09/04/2020,08/07/2020 SARS-COV-2 (COVID-19),NON-US,Unspecified(HISTORI KATERIN) 04/05/2023 Td (Adult), adsorbed 09/12/2000 Tdap 11/03/2020,06/21/2010 influenza trivalent high dos e (HD)(PF) 04/27/2024 influenza trivalent vaccine (6 months and older)(PF) 07/29/2016 influenza vaccine quad (FLUZONE/FLUARIX) (6 months and older)(PF) 03/28/2020,04/07/2019,05/03/2018,2009 Family History Medical History Relation Name Comments Coronary artery disease Brother Aris Hear t disease, 3 arteries replaced Other cancer Brother Aris 2 defective hea rt valves replaced Prostate cancer Brother Aris Psoriasis Brother Aris Valvular heart disease Brother Aris Asthma Daughter Annia Coronary artery disease Father Duane Joaquín nary artery disease, high blood pressure Heart attack Father Duane Mental illness Half-Brother Crow Asthma Maternal Grandfather Crow Flores is, high blood pressure, detached retinas, glaucoma, and macular degeneration. She is 100 and now has congestive heart failure Bladder cancer Maternal Grandfather Crow Esophageal cancer Maternal Grandfather Crow Heart failure Maternal Grandfather Crow Tobacco Use Maternal Grandfather Crow Other cancer Maternal Grandmother Yanet Parham marisela heart failure, macular degeneration, high blood pressure Coronary artery disease Mother Zoya Hear t disease, high blood pressure Knee replacement Mother Zoya Osteoarthritis of knee Mother Zoya Other cancer Mother Zoya Heart condition Tobacco Use Mother's Brother 1 Heart attack Mother's Brother 2 Mitch Had maker, 99% blockage Prostate cancer Mother's Brother 2 Mitch Meyer w as a heavy smoker and had prostate and bone cancer Prostate cancer Paternal Grandfather Crow Wilson Blad [place] cancer, esophageal cancer, congestive heart failure No Known Problems Son 1 Lind[place] No Known Problems Son 2 Michelet Relation Name Status Comments Brother Aris Alive Daughter Annia Alive Father Duane Half-Brother Crow Alive Maternal Grandfather Crow Unknown Maternal Grandmother Yanet Mother Zoya Alive Mother's Brother 1 Mother's Brother 2 Mitch Paternal Grandfather Crow Wilson Son 1 [place] Alive Son 2 [place]let Alive Social History Tobacco Use Types Packs/Day Years Used Date Smoking Tobacco: Never Passive Smoke Exposure: Never Smokeless Tobacco: Never Tobacco Cessation:Counseling Given: Not Answered Alcohol Use Standard Drinks/Week Comments Yes 7 (1 standard drink = 0.6 oz pur e alcohol) [facility] Utilities Answer Date Recorded In the past 12 months has e [employer] gas, oil, or water [employer] threatened to shut off services in your [...] your living situation today? I have a [facility] place to live 12/20/2024 Education Answer Date Recorded What is the highest level of school you have completed or the highest degree you have received? 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 [address] [place] [address] Health Maintenance Due Date Last Done Comments CT Colonography 1955 Cologuard 1955 Influenza Vaccine (#1) 2025 , 04/15/2023, 05/14/2022, Additional history exists Creatinine Level (Kidney Function Test) 09/17/2025 09/17/2024, 12/19/2023, 09/08/2023, Additional history exists Potassium Level 09/17/2025 09/17/2024, 11/25, 09/08/2023, Additional history exists Sodium Level 09/17/2025 09/17/2024, 11/25, 09/08/2023, Additional history exists Mammogram 12/10/2025 12/10/2024, 11/24, 11/22/2022, Additional history exists Visit: Medicare Annual Wellness 12/21/2025 12/20/2024 Visit: Annual, age 65+ (or Medicare and <65) 02/19/2026 02/19/2025 Colonoscopy 04/19/2027 04/19/2022, 03/27 (Performed elsewhere), 02/27/2019, Additional history exists Colorectal Cancer Surveillance 04/19/2027 Gastroscopy (upper endoscopy) 04/19/2027 04/19/2022 (Performed elsewhere), 02/27/2019 Fasting Glucose for Diabetes Screening 09/18/2027 09/17/2024, 12/19/2023, 09/08/2023, Additional history exists Lipid (Cholesterol) Screening 12/20/2029 12/20/2024, 09/17/2024, 09/08/2023, Additional history exists DTaP,Tdap,and Td Vaccines (5 - Td or Tdap) 11/03/2030 11/03/2020, 06/21/2010, 09/12/2000, Additional history exists Hepatitis C Screening Completed 02/25/2016 Bone Density Scan (Osteoporosis Screen) Discontinued 12/03/2020 Pneumococcal vaccine (50+ years) Completed 06/06/2022, 02/25/2016 RSV vaccine - (32-36 weeks) or 60+ years Completed 05/16/2023 Zoster Vaccines Completed 08/17/2023, 08/2022, 02/25/2016 Depression Screening (Annual PHQ-2) Completed 12/20/2024, 12/20/2024 Fall Risk Screen (Annual) Completed 12/20/2024 COVID-19 Vaccine Completed 01/13/2025, , 04/05/2023, Additional history exists IPV Vaccines Aged Out No longer eligi ble based on patient's age to complete this topic Procedures Procedure Name Priority Date/Time Associated Diagnosis Comments ECG Routine 12/20/2024 10:54 AM CDT Hypertension Essential Primary LIPID PANEL, S Routine 12/20/2024 9:08 AM CDT Hyperlipidemia BI BREAST SCREENING BILATERAL WITH TOMOSYNTHESIS RAD - Routine (most inpatients and all outpatients) 12/10/2024 11:23 AM CDT Routine Screening Breast Exam BASIC METABOLIC PANEL, S/P Routine 09/17/2024 12:00 PM CDT Overweight Body Mass Index 25-29.9 Adult COLONOSCOPY Routine 02/27/2019 HCV AB SCRN W/REFLEX TO HCV PCR, S Routine 02/25/2016 9:17 AM CDT from Last 3 Months or Most Recently Relevant to Health Maintenance Results * ECG 12 Lead (12/20/2024 10:54 AM CDT) Ventricular Rate ECG/Min 61 BPM MUSE MO Interval 156 ms MUSE QRSD Interval 96 ms MUSE QT Interval 400 ms MUSE QTC Interval 402 ms MUSE P Borger 5 degrees MUSE R Borger 10 degrees MUSE T Wave Borger 38 degrees MUSE 12/20/2024 10:5 4 AM CDT 12/20/2024 11:13 AM CDT Impressions MUSE - 12/20/2024 11:13 AM CDT Normal sinus rhythm with sinus arrhythmia Nonspecific T wave abnormality No previous ECGs available Reviewed by CLARENCE Espinosa Narrative Procedure Note Tyler Chapman M.D. - 12/20/2024 IMPRESSION: Normal sinus rhythm with sinus arrhythmia Nonspecific T wave abnormality No previous ECGs available Reviewed by CLARENCE Espinosa Willis Lozoya M.D. ECG ORDERABLES Final Result MUSE NA * Lipid Panel (12/20/2024 9:08 AM CDT) Triglycerides 103 mg/dL 12/20/2024 11:03 AM CDT OWAT Comment: ----REFERENCE VALUE---- Normal: <150 mg/dL Borderline High: 150-199 mg/dL High: 200-499 mg/dL Very High: > or =500 mg/dL Cholesterol, Total 176 mg/dL 2024 11:03 AM CDT OWAT Comment: ----REFERENCE VALUE---- Desirable: < 200 mg/dL Borderline High: 200 - 239 mg/dL High: > or = 240 mg/dL Cholesterol, LDL, Calculated 101 mg/dL 12/20/2024 11:03 AM CDT OWAT Comment: ----REFERENCE VALUE---- Desirable: <100 mg/dL Above Desirable: 100-129 mg/dL Borderline High: 130-159 mg/dL High: 160-189 mg/dL Very High: >=190 mg/dL ----ADDITIONAL INFORMATION---- LDL cholesterol calculated using the Chau/NIH equation. Cholesterol, HDL 56 >=50 mg/dL 12/21/19 11:03 AM CDT OW[facility] Cholesterol, Non-HDL, Calculated 120 mg/dL 12/20/2024 11:03 AM CDT [facility] Comment: ----REFERENCE VALUE---- Desirable: <130 mg/dL Above Desirable: 130-159 mg/dL Borderline High: 160-189 mg/dL High: 190-219 mg/dL Very High: > or =220 mg/dL Fasting (8 HR or more) Yes 12/20/2024 9:08 AM CDT [facility] Blood (Blood, Venous) 12/20/2024 9:08 AM CDT 12/20/2024 10:32 AM CDT us Ayana BISWAS, P.A.-C. LAB BLOOD ADD-ON Final Result [facility] [address] [place] [address], [facility] in [place] [address] [place] [address] * BI Breast Screening Bilateral with Tomosynthesis (12/10/2024 11:23 AM CDT) Anatomical Region Laterality Modality Breast, Breast Imaging RST L OS, Breast Imaging ARZ LOS, Breast Imaging FLA LOS Bilateral Mammography Impressions 12/10/2024 1:09 PM CDT Negative. RECOMMENDATION: Annual Screening Mammogram ASSESSMENT: BI-RADS: 1: Negative. Narrative 12/10/2024 1:09 PM CDT EXAM: BI BREAST SCREENING BILATERAL WITH TOMOSYNTHESIS Current study was evaluated with a Computer Aided Detection (CAD) system. INDICATION: Screening mammogram. COMPARISON: Prior exam(s) were available and reviewed for comparison. DENSITY: b. There are scattered areas of fibroglandular density. FINDINGS: No mammographic findings of malignancy. Procedure Note Conner Ewing M.D. - 12/10/2024 EXAM: BI BREAST SCREENING BILATERAL WITH TOMOSYNTHESIS Current study was evaluated with a Computer Aided Detection (CAD) system. INDICATION: Screening mammogram. COMPARISON: Prior exam(s) were available and reviewed for comparison. DENSITY: b. There are scattered areas of fibroglandular density. FINDINGS: No mammographic findings of malignancy. IMPRESSION: Negative. RECOMMENDATION: Annual Screening Mammogram ASSESSMENT: BI-RADS: 1: Negative. Ayana BISWAS PBonA.-C. IMG BI PROCEDURES Final Result * (ABNORMAL) Basic Metabolic Panel (09/17/2024 12:00 PM CDT) Potassium, P 4.2 3.6 - 5.2 mmol/L 09/17/2024 1:41 PM CDT OWAT Sodium, P 140 135 - 145 mmol/L 09/17/2024 1:41 PM CDT OWAT Chloride, P 102 98 - 107 mmol/L 09/17/2024 1:41 PM CDT OWAT Bicarbonate, P 25 22 - 29 mmol/L 09/17/2024 1:42 PM CDT OWAT Anion Gap, P 13 7 - 15 09/17/2024 1:41 PM CDT OWAT BUN (Blood Urea Nitrogen), P 17 6 - 21 mg/dL 09/17/2024 1:42 PM CDT OWAT Creatinine 0.55(L) 0.59 - 1.04 mg/dL 09/17/2024 1:42 PM CDT OWAT Estimated GFR (eGFR) >90 >=60 mL/min/BSA 09/17/2024 1:42 PM CDT OWAT Comment: Estimated GFR calculated using the 2020 CKD_EPI creatinine equation. Calcium, Total, P 9.3 8.8 - 10.2 mg/dL 09/17/2024 1:42 PM CDT OWAT Glucose, P 94 70 - 140 mg/dL 09/17/2024 1:42 PM CDT OWAT Blood (Blood, Venous) 09/17/2024 12:00 PM CDT 09/17/2024 1:06 PM CDT Ayana BISWAS, P.A.-C. LAB BLOOD ADD-ON Final Result [facility] [address] [place] [address], [place] OWAT [facility] [place] [address] [place] [address] * Colonoscopy (02/27/2019) EXT Colonoscopy Abnormal - See Scanned Report for Details Normal - See Scanned Report for Details, HIMS - Report Received and Scanned Comment:See Care Everywhere for results. Colonoscopy 02/27/2019-One 15 mm polyp in the cecum. One 6 mm polyp in the descending colon Historical Provider GI PROCEDURE ORDERABLES Felisa l Result * HCV Ab w/Reflex to HCV PCR, S (medicare) (02/25/2016 9:17 AM CDT) HXHCV Ab [facility] Negative Negative POWERCHART Comment: Zzhpgy-rs-hfpkto ratio is <1.00. Test Performed by: [place] [address] Machine Egg Washer: Flaco Gibson II, M.D., Ph.D. Blood 02/25/2016 9:17 AM CDT Ryan Wilson M.D. LAB MICROBIOLOGY - BLOOD ORDER LYDIA Final Result POWERCHART from Last 3 Months or Most Recently Relevant to Health Maintenance Insurance MEDICARE [facility] Care Teams Software Architect Relationship Specialty Start Date End Date Willis Joseph M.B.B.S., MEliza [address] [place] [address] [place] [phone] PCP - General Family Medicine 01/06/25
--- OUTSIDE RECORDS SUMMARY | 2025-03-06 19:10 | XMS_ITS | Encounter Summary ---
Author Organization [facility] Address [address] [place] [address] Care Team Providers Care Legal Officer Name Role Phone Willis Joseph M.D. Primary Care P [facility] Encounter Details Date Type Department Care Team (Late st Contact Info) Description 12/20/2024 Results Follow-Up Department of Family Medicine, [facility], in [place], [place] [address] [place] [address] Willis Joseph M.B.B.S., MEliza [address] [place] [phone] ECG 12 Lead Social History Tobacco Use Types Packs/Day Years Used Date Smoking Tobacco: Never Passive Smoke Exposure: Never Smokeless Tobacco: Never Alcohol Use Standard Drinks/Week Comments Yes 7 (1 standard drink = 0.6 oz pur e alcohol) [facility] Utilities Answer Date Recorded In the [...] your living situation today? I have a [facility] place to live 12/20/2024 Education Answer Date Recorded What is the highest level of school you have completed or the highest degree you have received? 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 - 12/20/2024 11:34 AM CDT Results showed no significant abnormalities. 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 [address] [facility] [phone] PCP - General Family Medicine 01/06/25 documented as of this encounter
--- OUTSIDE RECORDS SUMMARY | 2025-03-06 19:10 | XMS_ITS | Encounter Summary ---
Author Organization [facility] Address [address] [place] [address] Care Team Providers Care Construction Services Technician Name Role Phone Willis Joseph M.D. Primary Care Lavelle mckinnon Reason for Visit * Reason Onset Date Comments Follow-up 12/23/2024 Encounter Details Date Type Department Care Team (Late st Contact Info) Description 12/23/2024 Clinical Communication Department of [facility] in [place], [place] [address] [place] [phone] Ayana Loaiza MPAS, P.A.-C. [address] [place] [phone] Follow-up Social History Tobacco Use Types Packs/Day Years Used Date Smoking Tobacco: Never Passive Smoke Exposure: Never Smokeless Tobacco: Never Alcohol Use Standard Drinks/Week Comments Yes 7 (1 standard drink = 0.6 oz pur e alcohol) [facility] Utilities Answer Date Recorded In the past 12 months has e electric, gas, oil, or water [employer] threatened to shut off services in your [...] your living situation today? I have a [facility] place to live 12/20/2024 Education Answer Date Recorded What is the highest level of school you have completed or the highest degree you have received? 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 - 12/23/2024 9:26 AM CDT Left message for patient to return call to clinic. Does the patient need to speak to nursing? yes Action needed: Follow up on patients anxiety and home BP readings since starting losartan. * Telephone Encounter - Minerva Amaral R.N. - 12/23/2024 9:25 AM CDT ----- Message from Darell Mao M.D. sent at 12/20/2024 5:50 PM CDT ----- Please call patient next week to check on anxiety and blood pressure. documented in this encounter Plan of Treatment Upcoming Encounters Date Type Department Care Team (Late st Contact Info) Description 12/22/2025 10:45 AM CDT Office Visit Department of Family Medicine, [facility], in [place], [place] [address] [place] [address] Willis Joseph M.B.B.S., M.D. 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 [address] [place] [phone] PCP - General Family Medicine 01/06/25 documented as of this encounter
[2025-03-06 19:11] VITALS: BP 129/84; PULSE 91; RESP 18; TEMP 37.3; O2SAT 97; BMI 29.1
--- NOTE | 2025-03-06 19:55 | ED_ITS ---
HPI - General Adult General Date Seen: 03/06/25 Chief complaint: Post Op Complication Stated complaint: R knee swelling post replacement Time Seen by Provider: 03/06/25 19:41 Source: patient Mode of arrival: ambulatory Limitations: no limitations History of Present Illness HPI narrative: Patient is a 69-year-old female presenting for right knee pain. She had knee replacement surgery on 03/04/2025 [facility], [place], operated by [facility]. She was discharged yesterday doing well. States today about 2 hours prior to arrival she noticed quite a bit of pain to her right thigh with some redness and warmth. She states she was told if she develops redness to come to the emergency department. They state now the redness and warmth to the upper leg has resolved but she still having quite a bit of pain to her right knee. There is swelling noted to the knee. She is not taking off bandages yet. Also states she has her sciatica pain going into her right hip. This is a chronic issue. Has been using her oxy codone at home. Denies chest pain, shortness of breath, fevers, chills, weakness, numbness. No other concerns noted Related Data Home Medications ?Medication ?Instructions ?Recorded ?Confirmed clobetasol 0.05 % topical ointment topical 2XW 5 01/16/25 fluticasone propionate 50 2 spray intranasal DAILY 02/1703/04/25 mcg/actuation nasal spray,suspension fluticasone 250 mcg-salmeterol 50 1 ea inhalation BID 11/27/24 03/06/25 mcg/dose blistr powdr for inhalation (Wixela Inhub) acetaminophen 650 mg 1,300 mg PO Q8H PRN 02/25/25 03/06/25 tablet,extended release (Pain Relief (acetaminophen)) losartan 25 mg tablet 25 mg PO QDAY 02/25/2503/06 rosuvastatin 5 mg tablet 5 mg PO QDAY 02/25/25 Previous Rx's ?Medication ?Instructions ?Recorded aspirin 81 mg chewable tablet 81 mg PO BID for DVT pro phylaxis 03/04/25 (Aspirin Childrens) 30 days #60 tabs oxycodone 5 mg tablet 2.5 - 5 mg (0.5 - 1 x 5 mg) PO 03/04/25 Q4-6H PRN Pain #42 tabs sennosides 8.6 mg tablet (Senna 17.2 mg (2 x 8.6 mg) P O BID PRN 03/04/25 Lax) constipation #100 tabs hydroxyzine HCl 25 mg tablet 25 mg PO HS PRN #30 tabs 03/05/25 Allergies Allergy/AdvReac Type Severity Reaction Status Date / Time Penicillins Allergy Unknown Rash Verified 03/04/25 07:35 Review of Systems Status of ROS: Reports: 10 or more systems reviewed and unremarkable except as noted in History and below [facility] Medical History (Updated 03/06/25 @ 21:21 by Parag Salinas DO) Insomnia ?G47.00 - Insomnia, unspecified (ICD-10) Varicose veins of both lower extremities ?I83.93 - Asymptomatic varicose veins of bilateral lower extremities (ICD-10) Sinusitis ?J32.9 - Chronic sinusitis, unspecified (ICD-10) Leukocytosis ?D72.829 - Elevated white blood cell count, unspecified (ICD-10) Keratosis ?L57.0 - Actinic keratosis (ICD-10) Hyperlipidemia ?E78.5 - Hyperlipidemia, unspecified (ICD-10) GERD (gastroesophageal reflux disease) ?K21.9 - Gastro-esophageal reflux disease without esophagitis (ICD-10) Dry eye syndrome ?H04.129 - Dry eye syndrome of unspecified lacrimal gland (ICD-10) Asthma ?J45.909 - Unspecified asthma, uncomplicated (ICD-10) Surgical History (Updated 03/05/25 @ 08:07 by Tyler Burciaga MD) Status post knee replacement (03/04/25) ?Z96.659 - Presence of unspecified artificial knee joint (ICD-10) History of right breast biopsy (2000) ?Z98.890 - Other specified postprocedural states (ICD-10) History of esophagogastroduodenoscopy (EGD) (02/27/19) ?Z98.890 - Other specified postprocedural states (ICD-10) History of eye surgery (03/17/10) ?Z98.890 - Other specified postprocedural states (ICD-10) History of total hysterectomy (1991) ?Z90.710 - Acquired absence of both cervix and uterus (ICD-10) Social History (Updated 03/04/25 @ 15:27 by Tyler Burciaga MD) Narrative: She lives with her in [place]. They have a couple steps into the house and she can live on 1 level. She does not smoke. She occasionally drinks alcohol What is your current living situation?: I presently have a place to live Smoking Status: Never smoker How often do you have a drink containing alcohol: monthly or less AUDIT-C Alcohol total score: 1 Non-prescribed substance use: denies use Caffeine: Yes Exam Narrative: Exam Narrative: Const: Well-nourished, Well-developed, in mild distress Eyes: PERRL, no conjunctival injection, and symmetrical lids HENT: Atraumatic external nose and ears. Moist mucous membranes. Neck: Symmetric, trachea midline, No thyromegaly. CVS: Dorsalis pedis pulse +2 bilaterally, less than 2nd cap refill MSK:Extremities w/o deformity, swelling noted to the right lower extremity with some bruising around the knee. Well appearing surgical site. Skin: Warm, Dry. No rashes or lesions. Neuro: Normal Muscle tone, No focal neurological deficits. Psych: Awake, Alert, & Oriented x3. Appropriate mood and affect. Const: Vital Signs, click to edit/add: Vital Signs - 24 hr 03/06/25 19:11 Temperature 99.1 F Pulse Rate [Pulse Oximeter] 91 Respiratory Rate 18 Blood Pressure [Ri ght Upper Arm] 129/84 Pulse Oximetry 97 Oxygen Delivery Me thod Room Air Course Vital Signs Vital signs: Initial Vital Signs Temperature 99.1 F 03/06/25 19:11 Temperature Source Temporal Artery Scan 03/06/25 19:11 Pulse Rate 91 03/06/25 19:11 Respiratory Rate 18 03/06/25 19:11 Blood Pressure 129/84 03/06/25 19:11 Blood Pressure Mean 99 03/06/25 19:11 Blood Pressure Position Sitting 03/06/25 19:11 Pulse Oximetry 97 03/06/25 19:11 Oxygen Delivery Method Room Air 03/06/25 19:11 Vital Signs Temperature 99.1 F 03/06/25 19:11 Pulse Rate 91 03/06/25 19:11 Respiratory Rate 18 03/06/25 19:11 Blood Pressure 129/84 03/06/25 19:11 Pulse Oximetry 97 03/06/25 19:11 Oxygen Delivery Method Room Air 03/06/25 19:11 Temperature 99.1 F 03/06/25 19:11 Pulse Rate 91 03/06/25 19:11 Respiratory Rate 18 03/06/25 19:11 Blood Pressure 129/84 03/06/25 19:11 Pulse Oximetry 97 03/06/25 19:11 Oxygen Delivery Method Room Air 03/06/25 19:11 Medications Administered Medications: Discontinued Medications Generic Name Dose Route Start Last Admin Trade Name Nicko PRN Reason Stop Dose Admin Oxycodone HCl 5 mg 03/06/25 19:55 03/06/25 20:00 Oxycodone 5 Mg Tablet PO 03/06/25 19:56 5 mg ONCE ONE Administration Medical Decision Making MDM Narrative Medical decision making narrative: Patient is a 69-year-old female presenting for right leg pain. The incisional site does not look infected. It is healing well. There is some bruising around the knee but this is expected after surgery. She has some mild discomfort of the calf. She has been doing physical therapy and I did speak to Discharge Plan Discharge Clinical Impression: Post-op pain Patient Disposition: Home, Self-Care Condition: Stable Additional Instructions: Recommend following up with the orthopedic surgical team. We will call you if there are any changes on the official report versus the preliminary report on your ultrasound. Return to emergency department for new or worsening symptoms Prescriptions: No Action fluticasone propion-salmeterol [Wixela Inhub] 250-50 mcg/dose blister with device 1 ea inhalation BID fluticasone propionate 50 mcg/actuation spray,suspension 2 spray intranasal DAILY clobetasol 0.05 % ointment topical 2XW losartan 25 mg tablet 25 mg PO QDAY rosuvastatin 5 mg tablet 5 mg PO QDAY acetaminophen [Pain Relief (acetaminophen)] 650 mg tablet extended release 1,300 mg PO Q8H PRN sennosides [Senna Lax] 8.6 mg Tablet 17.2 mg PO BID PRN (Reason: constipation) Qty: 100 0RF aspirin [Aspirin Childrens] 81 mg tablet,chewable 81 mg PO BID 30 Days Qty: 60 0RF oxycodone 5 mg Tablet 2.5 - 5 mg PO Q4-6H MDD 6 tabs per day PRN (Reason: Pain) Qty: 42 0RF Rx Instructions: Minimize. Discontinue as soon as possible hydroxyzine HCl 25 mg tablet 25 mg PO HS PRNQty: 30 0RF Follow Up/Referrals: Willis Joseph MD [Primary Care Provider, Family Practice] Stand Alone Forms: WePo[employer] Info Instructions
--- NOTE | 2025-03-06 20:40 | CRLHL7_ITS ---
For Patients: As a result of the Century Cures Act, medical imaging exams and procedure reports are released immediately into your electronic medical record. You may view this report before your referring provider. If you have questions, please contact your health care provider. INDICATION: Flank pain, recent surgery. TECHNIQUE: Ultrasound venous duplex lower right extremity. Compression venous exam was performed using moran-scale, color Doppler, and spectral Doppler analysis. COMPARISON: None. FINDINGS: Deep veins: Sonographic imaging demonstrates the right common femoral, deep femoral, superficial femoral, popliteal, posterior tibial, peroneal and the contralateral left common femoral veins to be fully compressible with normal color Doppler blood flow. Superficial veins: Greater saphenous vein is fully compressible. No popliteal cyst. IMPRESSION: No deep venous thrombosis in the evaluated veins of the right lower extremity. Dictated by Brody Moraes MD @ 03/06/2025 9:47:21 PM (Electronically Signed)
== END 2025-03-06 21:54 | disposition home or self-care (01) ==
PROVIDERS: Emergency Provider Student in an Organized Health Care Education/Training Program; PCP Family Medicine
DX: M25.561 Pain in right knee (principal); Z96.651 Presence of right artificial knee joint
CPT/HCPCS: 93971; 99283; A9270

== ENCOUNTER 2025-04-18 10:32 | Outpatient (CLI) | payer MEDICARE, SELFPAY | END 2025-04-18 10:33 | disposition home or self-care (01) | LOC: INJ CL 10:33 | PROVIDERS: PCP Family Medicine; Visit Provider Family Medicine | DX: M54.16 Radiculopathy, lumbar region (principal); M51.369 Other intervertebral disc degeneration, lumbar region without mention of lumbar back pain or lower extremity pain | CPT/HCPCS: 64483; J1100; Q9966 ==